=== PATIENT | female | born 1940 | race Caucasian/White ===

== ENCOUNTER 2016-10-17 08:50 | Inpatient (IN) | payer OTHER ==
[2016-09-11 14:08] VITALS: BMI 22.0
--- NOTE | 2016-09-11 14:54 | PAT Medication Instructions ---
Service Date Sep 11, 2016. Current Home Medication List Aspirin (Aspirin Ec), 81 MG PO QAM Calcium Carbonate-Vitamin D (Calcium + D), 1 TAB PO QPM Coenzyme Q10 (Ubidecarenone) (Coq10), 100 MG PO QAM Estrogens, Conjugated (Premarin), 0.3 MG PO QAM Flaxseed (Linseed) (Flax Seed Oil), 1,000 MG PO QPM Mtbgpprbfbv-Nlerqpbgqix-Eiu C- (Glucosamine Chondroitin), 1 TAB PO QAM Melatonin (Kp Melatonin), 1 TAB PO HS PRN for PRN Multiple Vitamins W/ Minerals (Hair/Skin/Nails), 1 TAB PO QAM Multivitamin (Multivitamin), 1 TAB PO QPM [place] Jelly ([place] Jelly), 200 MG PO QAM Trazodone Hcl (Trazodone), 150 MG PO HS Turmeric (Curcuma Longa) (Turmeric), 500 MG PO QAM [Magnesium], 500 MG PO PRN [Meloxicam], 3.3 MG PO QAM Medication Instructions For Your Scheduled Surgery - Check with surgeon for instructions: Estrogens, Conjugated (Premarin), 0.3 MG PO QAM [Meloxicam], 3.3 MG PO QAM - Hold the following medications 2 weeks prior to surgery: Turmeric (Cur[place]uma [place]a) (Turmeric), 500 MG PO QAM Iqijyoctbnc-Irgzcbmmtaf-Yqd C- (Glucosamine Chondroitin), 1 TAB PO QAM Flaxseed (Linseed) (Flax Seed Oil), 1,000 MG PO QPM Coenzyme Q10 (Ubidecarenone) (Coq10), 100 MG PO QAM [place] Jelly ([place] Jelly), 200 MG PO QAM - Hold the following medications the morning of surgery: [Magnesium], 500 MG PO PRN Multiple Vitamins W/ Minerals (Hair/Skin/Nails), 1 TAB PO QAM - Take the following medications the morning of surgery with a sip of water: Aspirin (Aspirin Ec), 81 MG PO QAM - Take the following medications as scheduled the night before surgery: [Magnesium], 500 MG PO PRN Trazodone Hcl (Trazodone), 150 MG PO HS Multivitamin (Multivitamin), 1 TAB PO QPM Melatonin (Kp Melatonin), 1 TAB PO HS PRN for PRN Calcium Carbonate-Vitamin D (Calcium + D), 1 TAB PO QPM If you have any questions please call us at [phone] (Nadia Berkowitz PA-C) or [phone] or [phone]
[2016-09-11 15:37] LABS: URINE APPEARANCE CLEAR (CLEAR); URINE BILIRUBIN NEG (NEG); URINE COLOR YELLOW; URINE NITRITE NEG (NEG); URINE PH 5.5 (4.5-7.5); URINE SPECIFIC GRAVITY 1.017 (1.000-1.030); UROBILINOGEN NEG (NEG); ZZUR CULT IF INDIC CLEAN CATCH NO
[2016-09-11 15:40] LABS: MANUAL MICROSCOPIC REQUIRED? NO; REVIEW REQ? NO
--- NOTE | 2016-09-11 15:41 | DIAGNOSTIC IMAGING REPORT ---
CHEST PREADMISSION(PA/LAT) CLINICAL HISTORY: PAT preoperative evaluation COMPARISON STUDY: No previous studies for comparison. FINDINGS: The bones soft tissues and hemidiaphragms are normal. The cardiomediastinal silhouette is normal. The lungs are clear. The pulmonary vasculature is normal. IMPRESSION: Negative chest. Electronically signed by: Yanick Allen M.D. 09/11/2016 3:39 PM Dictated Date/Time: 09/11/2016 3:39 PM
[2016-09-11 15:42] LABS: INR 0.9 (0.9-1.1)
[2016-09-11 16:28] LABS: ESTIMATED AVERAGE GLUCOSE 111 mg/dl; HA1C FLAG Normal (Normal)
--- NOTE | 2016-10-16 17:11 | HISTORY & PHYSICAL EXAMINATION ---
DATE OF ADMISSION: 10/17/2016 CHIEF COMPLAINT: Chronic right knee pain. HISTORY OF PRESENT ILLNESS: This is a 76-year-old female patient of Dr. Carson'rafael complaining of chronic right knee pain, longstanding, now progressively getting worse. The patient has failed conservative treatment including anti-inflammatories, intra-articular injections and the use of a brace or a wrap. The patient has increased pain with weightbearing activities and her pain does interfere with her activities of daily living. PAST MEDICAL HISTORY: Coronary artery disease status post [place] in 2014, osteoarthritis. SOCIAL HISTORY: Half a pack per day smoker, no alcohol. FAMILY HISTORY: Noncontributory. REVIEW OF SYSTEMS: Chronic right knee pain, otherwise denies any shortness of breath, chest pain, nausea, vomiting or any other joint complaints. MEDICATIONS: Premarin 0.3 mg daily, [place] jelly 200 mg daily, turmeric and cumin 500 mg daily, glucosamine chondroitin daily, CoQ10 daily, Meloxicam daily, aspirin 81 mg daily, trazodone 150 mg daily, multivitamin daily, calcium plus vitamin D daily, flax seed oil daily, magnesium and melatonin as needed. ALLERGIES: No known drug allergies. PHYSICAL EXAMINATION: GENERAL: Well-developed, well-nourished 76-year-old female in no acute distress. She is alert and oriented x3 and pleasant. HEENT: Normocephalic, atraumatic. Extraocular motions are intact. Pupils are equal and reactive to light. HEART: Regular rate and rhythm, no murmurs appreciated. LUNGS: Clear. ABDOMEN: Soft and nontender, bowel sounds are present. EXTREMITIES: Right knee reveals a valgus deformity with 0-130 degrees of range of motion. She has lateral joint line tenderness with crepitation. She has 5/5 strength. NEUROLOGIC: Neurovascularly, she is intact in her right lower extremity. DIAGNOSES: Right knee end-stage osteoarthritis. She also has a history of coronary artery disease status post a myocardial infarction in 2015, and osteoarthritis. PLAN: The patient was advised of diagnoses. Indications, risks, benefits, postop course all have been reviewed. The patient wishes to proceed with a right total knee arthroplasty. Necessary consent forms, preoperative testing and clearances will be obtained.
--- NOTE | 2016-10-16 17:37 | HISTORY & PHYSICAL EXAMINATION ---
DATE OF ADMISSION: 10/17/2016 CHIEF COMPLAINT: Chronic right knee pain. HISTORY OF PRESENT ILLNESS: This is a 76-year-old female patient of Dr. House complaining of chronic right knee pain, longstanding, now progressively getting worse. The patient has failed conservative treatment including intraarticular injections, anti-inflammatories and the use of a brace and a wrap. The patient has increased pain with weightbearing activities and her pain does interfere with her activities of daily living. PAST MEDICAL HISTORY: Coronary artery disease status post an [place] in November of 2014. Osteoarthritis. SOCIAL HISTORY: Half pack per day smoker, nondrinker. PAST SURGICAL HISTORY: 1. Knee meniscal surgery. 2. Both surgery on her shoulders. 3. Tonsils. 4. Hysterectomy. FAMILY HISTORY: Noncontributory. REVIEW OF SYSTEMS: The patient complains of chronic right knee pain, otherwise denies any shortness of breath, chest pain, nausea, vomiting or ____. MEDICATIONS: Premarin 0.3 mg daily, [place] jelly 200 mg daily, turmeric and cumin 500 mg daily, glucosamine daily, CoQ10 daily, meloxicam daily, 81 mg aspirin daily, trazodone 150 mg daily, multivitamin daily, calcium plus D daily, flax seed oil daily, magnesium daily, and melatonin daily. ALLERGIES: No known drug allergies. PHYSICAL EXAMINATION: GENERAL: Well-developed, well-nourished 76-year-old female in no acute distress of Dr. House. She is alert and oriented x3 and pleasant. HEENT: Normocephalic, atraumatic. Extraocular muscles are intact. Pupils are equal and reactive to light. HEART: Regular rate and rhythm, no murmurs appreciated. LUNGS: Clear. ABDOMEN: Soft, nontender, bowel sounds present. EXTREMITIES: Right knee reveals a valgus deformity. She has range of motion of 0-130 degrees. She has lateral joint line tenderness. She has crepitation with passive range of motion. She has 5/5 strength. NEUROLOGIC: Neurovascularly, she is intact in her right lower extremity. DIAGNOSES: Right knee end-stage osteoarthritis with a history of coronary artery disease status post an myocardial infarction in 2014, osteoarthritis. PLAN: The patient was advised of her diagnoses. Indications, risks, benefits, and postop course have all been reviewed. The patient wishes to proceed with a right total knee arthroplasty. Necessary consent forms, preoperative testing and clearances will be obtained.
[~2016-10-17] VITALS: Ht 162.6 cm; Wt 58.1 kg
[2016-10-17] VITALS (7 sets, daily range): BP systolic 111–173; BP diastolic 66–79; PULSE 69–84; TEMP 36.3–36.7; O2SAT 94–99; Ht 162.6 cm; Wt 58.1 kg
[~2016-10-17 08:50] MED LIST: ACETAMINOPHEN 500 MG TAB PO SCH; ASPI81TA28 PO; ATROPINE SULFATE 0.1 MG/ML 5ML SYR IV PRN; BUPIVACAINE 0.5 % 5 MG/1 ML PF 10ML VIAL ONE; CALC600T9 PO; CEFAZOLIN 1000MG/55 ML D5W 55 ML IV SCH; COEN100C7 PO; CeleBREX 200 MG CAP PO SCH; DEXAMETHASONE 4 MG TAB PO SCH; ESTR0.3T PO; EpHEDrine SULFATE INJ 50 MG/ML AMP IV PRN; FAMOTIDINE 20 MG TAB PO SCH; FLAX1CAP11 PO; GABAPENTIN 300 MG CAP PO SCH; GLUCTAB7 PO; HYDROmorphone INJ 2 MG/ML SYR/VIAL IV PRN; LACTATED RINGER'S 1000ML 1,000 ML IV SCH; LACTATED RINGER'S 1000ML IV SCH; LACTATED RINGER'S 500 ML IV SCH; MAGNESIUM PO; MELA1TAB5 PO; MELOXICAM PO; METO25TA3 PO; METOCLOPRAMIDE HCL 10 MG TAB PO SCH; MULT-506 PO; MULT-580 PO; ONDANSETRON INJ 2 MG/ML 2 ML VIAL IV PRN; PHENYLEPHRINE 100MCG/ML 5ML SYR IV PRN; PRAV20TA PO; ROPIVACAINE 0.5% 5 MG/ML 30 ML VIAL ONE; ROPIVACAINE 5MG/ML 30 ML 150 MG, BUPIVACAINE/EPINEPHR 0.5% MPF 30 ML, KETOROLAC TROMETH... INFIL SCH; ROYA1CAP2 PO; TRAZ100T29 PO; TURM1CAP4 PO; Tylenol PO
[2016-10-17] MEDS ORDERED: FENTANYL CITRATE INJ 50 MCG/1 ML 2 ML VIAL ONE (09:41)
[2016-10-17] MEDS ORDERED: MIDAZOLAM HCL 1 MG/ML 2ML VIAL ONE (09:41)
[2016-10-17] MEDS ORDERED: ORTHO JOINT ANESTHETIC ONE (09:47)
[2016-10-17] MEDS ORDERED: POVIDONE-IODINE OP SOLN 30 ML BTL ONE (09:47)
[2016-10-17] MEDS ORDERED: BACITRACIN 50000 UNIT VIAL ONE (09:48)
--- NOTE | 2016-10-17 09:56 | History & Physical Bridge Note ---
H&P Re-Evaluation Bridge Note: I have examined the patient, reviewed the History & Physical and in the interval since the performance of the History & Physical I have noted the following changes of clinical significance: No changes noted
[2016-10-17] MEDS ORDERED: METHYLPREDNISOLONE ACETATE 80 MG/ML VIAL ONE (10:07)
[2016-10-17] MEDS ORDERED: BUPIVACAINE 0.5 % 5 MG/1 ML MPF 30ML VIAL ONE (10:07)
--- NOTE | 2016-10-17 10:37 | History & Physical Bridge Note ---
H&P Re-Evaluation Bridge Note: I have examined the patient, reviewed the History & Physical and in the interval since the performance of the History & Physical I have noted the following changes of clinical significance: swelling ,effusion and pain left knee known djd there.
[2016-10-17] MEDS ORDERED: LIDOCAINE HCL 2% 2 ML VIAL (20MG/ML) ONE (10:59)
[2016-10-17] MEDS ORDERED: PROPOFOL IV EMULSION 10 MG/ML 20 ML VIAL IV ONE (10:59)
[2016-10-17] MEDS ORDERED: ONDANSETRON INJ 2 MG/ML 2 ML VIAL ONE (10:59)
[2016-10-17] MEDS ORDERED: PHENYLEPHRINE 100MCG/ML 5ML SYR ONE (11:58)
--- NOTE | 2016-10-17 12:20 | [facility] Operative Report ---
Operative Report Operative Date October 17, 2016. Pre-Operative Diagnosis right knee end stage djd oa and swelling, effusion, pain, left knee, known moderately severe degenerative joint disease . Post-Operative Diagnosis same Procedure(s) Performed right total knee replacement and aspiration and injection left knee with steroid Surgeon Dr Carson Checker Product Design Surgeon(s) Yanick Black PA-C Estimated Blood Loss 5 cc Findings end stage bilateral knee djd oa right worse than left Specimens A. Right knee-bone and tissue Drains 2 hemovac Anesthesia spinal regional orthomix Complication(s) None Disposition Recovery Room / PACU Indications end stage djd I attest to the content of the Intraoperative Record and any orders documented therein. Any exceptions are noted below.
[2016-10-17] MEDS ORDERED: MAGNESIUM HYDROXIDE SUSP 30 ML UDC PO PRN (12:45)
[2016-10-17] MEDS ORDERED: MoRPHine SULFATE 2 MG/ML CARP IV PRN (12:45)
[2016-10-17] MEDS ORDERED: BISACODYL 10 MG SUPP PR PRN (12:45)
[2016-10-17] MEDS ORDERED: SOD PHOSPHATE/SOD BIPHOSPHATE ENEMA 132 ML BTL PR PRN (12:45)
[2016-10-17] MEDS ORDERED: ONDANSETRON INJ 2 MG/ML 2 ML VIAL IV PRN (12:45)
[2016-10-17] MEDS ORDERED: NON-FORMULARY MEDICATION (Melatonin (Kp Melatonin) 1 TAB) PO PRN (12:45)
[2016-10-17] MEDS ORDERED: TRAMADOL HCL 50 MG TAB PO PRN (12:45)
--- NOTE | 2016-10-17 13:28 | DIAGNOSTIC IMAGING REPORT ---
RIGHT KNEE 1 OR 2 VIEWS ROUTINE CLINICAL HISTORY: AP/LATERAL IN PACU RIGHT KNEE Right pain COMPARISON: None. DISCUSSION: Total right knee prosthetic. Good contact between prosthesis and underlying bone. Surgical drains are in position. There is no evidence for soft tissue swelling. IMPRESSION: Anatomic alignment status post total right knee prosthetic Electronically signed by: Yanick Allen M.D. 10/17/2016 1:26 PM Dictated Date/Time: 10/17/2016 1:26 PM
--- NOTE | 2016-10-17 14:05 | Anesthesiology Progress Note ---
Anesthesia Post Op Note Date & Time October 17, 2016 at 14:04 Vital Signs Pain Intensity: 0 Vital Signs Past 12 Hours Date Time Temp Pulse Resp B/P Pulse Ox O2 Delivery O2 Flow Rate FiO2 10/17/16 14:02 75 10/17/16 14:02 75 16 96 10/17/16 14:01 97/55 10/17/16 14:00 97/55 10/17/16 13:57 76 10/17/16 13:57 76 16 96 10/17/16 13:55 99/56 10/17/16 13:52 77 10 96 10/17/16 13:52 77 10 10/17/16 13:50 99/57 10/17/16 13:47 78 10 10/17/16 13:47 78 10 96 10/17/16 13:46 36.8 10/17/16 13:45 100/63 10/17/16 13:41 79 10/17/16 13:41 80 16 96 10/17/16 13:40 107/63 10/17/16 13:36 79 12 10/17/16 13:36 79 12 95 10/17/16 13:35 118/67 10/17/16 13:31 80 14 10/17/16 13:31 79 14 94 10/17/16 13:30 118/69 10/17/16 13:26 79 13 95 10/17/16 13:26 78 13 10/17/16 13:25 122/75 10/17/16 13:25 36.6 79 16 122/75 95 Nasal Cannula 3 10/17/16 13:22 82 18 95 10/17/16 13:22 82 18 10/17/16 13:20 120/74 10/17/16 13:17 82 16 10/17/16 13:17 83 16 96 10/17/16 13:15 117/67 10/17/16 13:12 77 12 10/17/16 13:12 78 12 95 10/17/16 13:10 115/69 10/17/16 13:07 78 11 96 10/17/16 13:07 78 11 10/17/16 13:05 112/70 10/17/16 13:02 78 12 10/17/16 13:02 79 12 94 10/17/16 13:00 118/69 10/17/16 12:57 78 13 10/17/16 12:57 78 12 94 10/17/16 12:55 123/70 10/17/16 12:52 78 12 10/17/16 12:52 78 12 92 10/17/16 12:51 79 11 10/17/16 12:51 79 11 94 10/17/16 12:50 117/69 10/17/16 12:46 79 18 93 10/17/16 12:46 80 18 10/17/16 12:45 117/69 10/17/16 12:41 81 11 95 10/17/16 12:41 80 11 10/17/16 12:40 81 12 10/17/16 12:40 81 12 119/69 92 10/17/16 12:37 131/74 10/17/16 12:35 Nasal Cannula 3 10/17/16 12:30 36.9 86 16 117/72 91 Room Air 10/17/16 09:27 36.4 82 18 173/79 98 Room Air Notes Mental Status: alert / awake / arousable, participated in evaluation Pt Amnestic to Procedure: Yes Nausea / Vomiting: adequately controlled Pain: adequately controlled Airway Patency, RR, SpO2: stable & adequate BP & HR: stable & adequate Hydration State: stable & adequate Anesthetic Complications: no major complications apparent
[2016-10-17] MEDS ORDERED: MoRPHine SULFATE 4 MG/ML 1 ML CARP\\VIAL IV PRN (14:45)
--- NOTE | 2016-10-17 15:02 | OPERATIVE REPORT ---
DATE OF OPERATION: 10/17/2016 INDICATION FOR PROCEDURE: The patient is a 76-year-old female with chronic bilateral knee pain. She has valgus knees, right knee, severely valgus at least 20 degrees or 25 degrees valgus. She has [id number] in the lateral compartment of her right knee. She also has bone on bone on flexion of her left knee, and bilateral knee effusions and pain. PREOPERATIVE DIAGNOSIS: End-stage bilateral knee osteoarthritis, right greater than left. POSTOPERATIVE DIAGNOSIS: Same. PROCEDURE: Right total knee arthroplasty and left knee aspiration and injection with steroid. SURGEON: Dr. Carson. SMOKE TESTER: Yanick Black PA.-C. ANESTHESIA: Spinal, regional block and Orthomix. OPERATIVE PROCEDURE: The patient taken to the operating room, had regional block anesthetic. Right leg had spinal anesthetic. First, we sterilely prepped her left knee at a superior lateral approach to the suprapatellar effusion. A spinal needle was advanced into the knee joint and we aspirated the knee for 40 mL of clear yellow fluid and then injected her knee with Depo-Medrol and some local anesthetic. Then attention was taken to her right leg. Pneumatic tourniquet was placed on right upper thigh. Her right leg was sterilely prepped and draped with ChloraPrep in usual sterile fashion. Knee exam demonstrates she had good range of motion in extension and flexion, but she had marked valgus knee with pseudolaxity medially due to some stretching out of her MCL. The right leg was elevated, exsanguinated with Esmarch bandage. Pneumatic tourniquet was raised to 300 mmHg. Anterior incision was made across the right knee. Skin was incised sharply. Subcutaneous flaps were very thin and were elevated off of the fascia. Incision was made into the medial retinaculum and extended up in the mid third of the quadriceps tendon and extended down to the medial tibial tubercle. Intra-articular findings demonstrated that she had grade 4 DJD lateral compartment, some widening of the lateral femoral condyle chronically and some bone loss laterally. She had a chronic lateral meniscus tear which was subluxed. Her cruciate ligaments were still intact. She had grade 3 DJD patellofemoral joint and lateral tracking patella. The infrapatellar fat pad was resected. The meniscus remnants were resected. The ACL and PCL were resected. The fat pad over the anterior femur for placement of the component in that area was resected. Lateral synovial bands were released. I used the [place]ges \T\ Nephew Journey 2.0, total knee arthroplasty system using posterior stabilized implants and [facility] templating preop templating the knee for 4 femur and 4 tibia. The custom 4 femoral cutting block was pinned in position and the distal femoral cut was made. Then the 5-in-1 cutting block for size 4 was placed. The anterior, posterior and chamfer cuts were made. The tibia was subluxed and the custom tibial cutting block was pinned in position and the proximal tibial cut was made. Then the knee was extended and a subperiosteal peel lateral release was performed around the patella. The patella width was measured. Width was reproduced using a freehand cut technique and a 32 patellar component. Drill holes were made and the excess lateral facet was beveled off to prevent any impingement. We used the laminar spray unit feeder to assess ligamentous balance in extension and flexion, ligaments were balanced. The tibia was re-exposed. The 4 tibial trial was externally rotated in line with the tibial tubercle, pinned in position. The punch for the stem was used. Then, the 4 femoral trial was inserted, centered and the notch cutting devices were used, the collet was placed and the 10 trial insert gave balanced ligaments through full range of motion, but the patella did have some slight lateral tracking, so we did not have to do a lateral release, releasing the upper IT band attachment with lateral retinaculum back to the vastus lateralis muscle which was preserved and down to the proximal tibia. I left the synovium intact. Patella tracked centrally at this time. The trials were removed. The Orthomix anesthetic injection was injected per protocol. The knee was then copiously irrigated with pulsatile lavage antibiotic solution and bacitracin. The final components were then cemented with Simplex cement. The final components were the 4 posterior stabilized Oxinium Hodges \T\ Nephew Journey femoral component, the 4 primary tibial baseplate, the 10 mm posterior stabilized poly insert and the 32 mm patella. While cement cured, we used Betadine soap protocol. The knee was copiously irrigated with antibiotic solution and bacitracin. Two drains were brought out laterally. Quadriceps tendon and medial retinaculum were closed with interrupted [id number] #1 Vicryl sutures. The knee was taken through full range of motion, repair was secure. The subcutaneous tissue was closed with interrupted 2-0 Vicryl sutures, skin closed with sai. Sterile dressings were applied and the patient tolerated the procedure well. JONO Vogt was my evaluation assistant and functioned as evaluation assistant through the entire procedure. He assisted in patient positioning, prepping, draping, soft tissue retraction, instrument management during the procedure. He performed the fascial, subcutaneous and skin closure and will participate in postoperative care of the patient. I attest to the content of the Intraoperative Record and any orders documented therein. Any exceptions are noted below. JCARLOS
[2016-10-17] MEDS: D5W AND 1/2NSS + 20MEQ KCL 1,000 ML IV SCH (16:13)
[2016-10-17] MEDS ORDERED: NICOTINE 14 MG/24 HR TDSY TD ONE (16:15)
[2016-10-17] MEDS: CEFAZOLIN IV 1,000 MG in DEXTROSE 5% 50ML 50 ML IV SCH (18:40)
--- NOTE | 2016-10-17 19:57 | Medical Consult ---
Consultation Date of Consultation: October 17, 2016. Attending Physician: Leoncio Carson M.D. Reason for Consultation: postop medical management History of Present Illness Patient seen and examined after undergoing right TKA and left knee aspiration and steroid injection today by Dr. Carson. Patient states bilat LE's are still numb from anesthetic block and she is not having any pain so far. She is able to move her toes. Has not had a meal yet but ate crackers. She denies dizziness , chest pain, SOB, N/V, change in bowel or bladder movements. No hx of VTE. Past Medical/Surgical History Medical Problems: (1) CAD (coronary artery disease) Status: Chronic (2) Dyslipidemia Status: Chronic (3) S/p left shoulder surgery Status: Chronic (4) Tobacco abuse disorder Status: Chronic Surgical Problems: (1) H/O right knee surgery Status: Chronic (2) S/P partial hysterectomy Status: Chronic (3) S/p right shoulder rotator cuff repair Status: Chronic (4) S/P tonsillectomy Status: Chronic (5) Status post coronary artery stent placement Permanent Comment: BMS to RCA in 11/2014; Dr. Obrien Status: Chronic Family History FH: CAD (coronary artery disease) BROTHER ( of [place] age 51) Social History Smoking Status: Current Every Day Smoker (7 cigarettes per day) Alcohol Use: none Drug Use: none Housing Status: lives alone Allergies Coded Allergies: Atorvastatin (Verified Allergy, Unknown, MUSCLE ACHES, 10/17/16) Home Medications Active Reported [Tylenol] Unknown Strength Unknown Dose PO Q4 PRN Toprol Xl (Metoprolol Succinate) 25 Mg Tabcr 12.5 Mg PO QAM Pravachol (Pravastatin Sodium) 20 Mg Tab 10 Mg PO HS Kp Melatonin (Melatonin) 3 Mg Tab 1 Tab PO HS PRN 30 Days [Magnesium] 500 Mg PO PRN Flax Seed Oil (Flaxseed (Linseed)) 1 Cap Cap 1,000 Mg PO QPM Calcium + D (Calcium Carbonate-Vitamin D) 1 Tab Tab 1 Tab PO QPM Multivitamin (Multivitamins) Tab 1 Tab PO QPM Trazodone (Trazodone HCl) 100 Mg Tab 150 Mg PO HS Hair/Skin/Nails (Multiple Vitamins W/ Minerals) 1 Tab Tab 1 Tab PO QAM Aspirin Ec (Aspirin) 81 Mg Tab 81 Mg PO QAM [Meloxicam] 3.3 Mg PO QAM Coq10 (Coenzyme Q10 (Ubidecarenone)) 100 Mg Cap 100 Mg PO QAM Glucosamine Chondroitin (Rpzatjdtfua-Dmztzxgkguc-Uft C-) 1 Tab Tab 1 Tab PO QAM Turmeric (Turmeric (Curcuma Longa)) 500 Mg Cap 500 Mg PO QAM [facility] Jelly 200 Mg Cap 200 Mg PO QAM Premarin (Estrogens Conjugated) 0.3 Mg Tab 0.3 Mg PO QAM Current Inpatient Medications Current Inpatient Medications Medications (Trade) Dose Ordered Sig/Kaushal Route Start Time Stop Time Status Last Admin Dose Admin Cefazolin Sodium (Ancef 1000mg/55 ml D5W) 55 ml @ 100 mls/hr PREOP IV 10/17/16 06:00 10/17/16 18:00 10/17/16 10:42 100 MLS/HR Acetaminophen (Tylenol Tab) 1,000 mg PREOP PO 10/17/16 06:00 10/17/16 18:00 10/17/16 10:10 1,000 MG Celecoxib (CeleBREX CAP) 200 mg PREOP PO 10/17/16 06:00 10/17/16 18:00 10/17/16 10:10 200 MG Dexamethasone (Decadron Tab) 8 mg PREOP PO 10/17/16 06:00 10/17/16 18:00 10/17/16 10:11 8 MG Famotidine (Pepcid Tab) 20 mg PREOP PO 10/17/16 06:00 10/17/16 18:00 10/17/16 10:10 20 MG Gabapentin (Neurontin Cap) 300 mg PREOP PO 10/17/16 06:00 10/17/16 18:00 10/17/16 10:11 300 MG Metoclopramide HCl (Reglan Tab) 10 mg PREOP PO 10/17/16 06:00 10/17/16 18:00 10/17/16 10:09 10 MG Estrogens Conjugated (Premarin Tab) 0.3 mg QAM PO 10/18/16 09:00 11/17/16 08:59 Metoprolol Succinate (Toprol Xl Tab) 25 mg QAM PO 10/18/16 09:00 11/17/16 08:59 Pravastatin Sodium (Pravachol Tab) 20 mg HS PO 10/17/16 21:00 11/16/16 20:59 Trazodone HCl (Desyrel Tab) 150 mg HS PO 10/17/16 21:00 11/16/16 20:59 Calcium/Vitamin D (Caltrate Plus Tab) 1 tab QPM PO 10/17/16 21:00 11/16/16 20:59 Miscellaneous Information 1 ea 1 ea QS N/A 10/17/16 16:00 11/16/16 15:59 Potassium Chloride/Dextrose/ Sod Cl 1,000 ml @ 100 mls/hr Q10H IV 10/17/16 16:00 10/18/16 15:59 Cefazolin Sodium/ Dextrose (Ancef Iv/D5 50ml) 55 ml @ 100 mls/hr Q8H IV 10/17/16 19:00 10/18/16 03:32 Celecoxib (CeleBREX CAP) 200 mg BID PO 10/17/16 21:00 11/16/16 20:59 Oxycodone HCl (Roxicodone Immediate Rel Tab) 1 TABLET FOR PAIN RATING... Q4H PRN PO 10/17/16 12:45 10/31/16 12:44 Oxycodone HCl (Oxycontin Tab) 10 mg Q12 PO 10/17/16 21:00 10/31/16 20:59 Morphine Sulfate (MoRPHine SULFATE INJ) 2 mg Q2H PRN IV 10/17/16 12:45 10/31/16 12:44 Acetaminophen (Tylenol Tab) 1,000 mg Q8H PO 10/17/16 22:00 11/16/16 21:59 Magnesium Hydroxide (Milk Of Magnesia Susp) 30 ml Q6H PRN PO 10/17/16 12:45 11/16/16 12:44 Bisacodyl (Dulcolax Supp) 10 mg DAILY PRN [place] 10/17/16 12:45 11/16/16 12:44 Sodium Biphosphate/ Sodium Phosphate (Fleet Enema) 132 ml DAILY PRN [place] 10/17/16 12:45 11/16/16 12:44 Docusate Sodium (coLACE CAP) 100 mg BID PO 10/17/16 21:00 11/16/16 20:59 Diphenhydramine HCl (Benadryl Cap) 25 mg Q8H PRN PO 10/17/16 12:45 11/16/16 12:44 Zolpidem Tartrate (Ambien Tab) 5 mg HSZ PRN PO 10/17/16 12:45 11/16/16 12:44 Multivitamins (Multivitamin Tab) 1 tab QAM PO 10/18/16 09:00 11/17/16 08:59 Ondansetron HCl (Zofran Inj) 4 mg Q6H PRN IV 10/17/16 12:45 11/16/16 12:44 Pantoprazole Sodium (Protonix Tab) 40 mg QAM PO 10/18/16 09:00 11/17/16 08:59 Tramadol HCl (Ultram Tab) 1 tablet for pain rating... Q4H PRN PO 10/17/16 12:45 11/16/16 12:44 Aspirin (Ecotrin Tab) 81 mg BID PO 10/17/16 21:00 11/16/16 20:59 Morphine Sulfate (MoRPHine SULFATE INJ) 4 mg Q2H PRN IV 10/17/16 14:45 10/31/16 14:44 Review of Systems Ten systems reviewed and negative except as listed in HPI. Physical Exam Date Time Temp Pulse Resp B/P Pulse Ox O2 Delivery O2 Flow Rate FiO2 10/17/16 15:15 36.5 84 18 130/75 97 Nasal Cannula 3.0 10/17/16 14:15 94 Nasal Cannula 3.0 10/17/16 14:15 36.7 82 16 111/66 94 Nasal Cannula 3.0 10/17/16 14:15 94 Nasal Cannula 3.0 10/17/16 14:02 75 10/17/16 14:02 75 16 96 10/17/16 14:01 97/55 10/17/16 14:00 97/55 10/17/16 13:57 76 10/17/16 13:57 76 16 96 10/17/16 13:55 99/56 10/17/16 13:52 77 10 96 10/17/16 13:52 77 10 10/17/16 13:50 99/57 10/17/16 13:47 78 10 10/17/16 13:47 78 10 96 10/17/16 13:46 36.8 10/17/16 13:45 100/63 10/17/16 13:41 79 10/17/16 13:41 80 16 96 10/17/16 13:40 107/63 10/17/16 13:36 79 12 10/17/16 13:36 79 12 95 10/17/16 13:35 118/67 10/17/16 13:31 80 14 10/17/16 13:31 79 14 94 10/17/16 13:30 118/69 10/17/16 13:26 79 13 95 10/17/16 13:26 78 13 10/17/16 13:25 122/75 10/17/16 13:25 36.6 79 16 122/75 95 Nasal Cannula 3 10/17/16 13:22 82 18 95 10/17/16 13:22 82 18 10/17/16 13:20 120/74 10/17/16 13:17 82 16 10/17/16 13:17 83 16 96 10/17/16 13:15 117/67 10/17/16 13:12 77 12 10/17/16 13:12 78 12 95 10/17/16 13:10 115/69 10/17/16 13:07 78 11 96 10/17/16 13:07 78 11 10/17/16 13:05 112/70 10/17/16 13:02 78 12 10/17/16 13:02 79 12 94 10/17/16 13:00 118/69 10/17/16 12:57 78 13 10/17/16 12:57 78 12 94 10/17/16 12:55 123/70 10/17/16 12:52 78 12 10/17/16 12:52 78 12 92 10/17/16 12:51 79 11 10/17/16 12:51 79 11 94 10/17/16 12:50 117/69 10/17/16 12:46 79 18 93 10/17/16 12:46 80 18 10/17/16 12:45 117/69 10/17/16 12:41 81 11 95 10/17/16 12:41 80 11 10/17/16 12:40 81 12 10/17/16 12:40 81 12 119/69 92 10/17/16 12:37 131/74 10/17/16 12:35 Nasal Cannula 3 10/17/16 12:30 36.9 86 16 117/72 91 Room Air 10/17/16 09:27 36.4 82 18 173/79 98 Room Air General Appearance: WD/WN, no apparent distress Head: normocephalic, atraumatic Eyes: normal inspection, sclerae normal ENT: hearing grossly normal, pharynx normal Neck: supple, trachea midline Respiratory/Chest: lungs clear, normal breath sounds, no respiratory distress, no accessory muscle use Cardiovascular: regular rate, rhythm, no murmur Abdomen/GI: normal bowel sounds, non tender, soft Extremities/Musculoskelatal: no calf tenderness, no pedal edema, + pertinent finding (s/p right TKA, dressing and ice pack in place, drain in place with sanguinous drainage) Neurologic/Psych: alert, normal mood/affect, oriented x 3, + pertinent finding (sensation grossly intact bilateral LE. able to move toes bilaterally. ) Skin: normal color, warm/dry Assessment & Plan S/P RIGHT TKA and LEFT KNEE ASPIRATION / STEROID INJECTION POD #[address] Carson Pain control, activity, wound care per ortho Monitor daily H/H for acute blood loss anemia Continue incentive spirometry PT/ OT evals CAD S/P BMS TO RCA 11/2014 Stable; no chest pain Aspirin continued by ortho Continue beta kassandra (taking metoprolol succinate 12.5 mg qam) and statin Follows with [facility] cardiology BORDERLINE BP BP was borderline in 90s systolic postop - improved to 130s-140s systolic Continue metoprolol succinate with parameters DYSLIPIDEMIA Continue statin CHRONIC SMOKER Counselled for smoking cessation Nicotine patch ordered at patient's request DVT PROPHYLAXIS Per ortho DISPOSITION Per ortho Patient seen in collaboration by Dr. Odonnell. Please see his addendum. Patient will be followed by Dr. Busch tomorrow. ADDENDUM: This is a 76 year old female with PMH of CAD s/p stents in 2014 and tobacco use disorder presents for a R TKA. Doing well post-operatively, pain controlled, no other issues to note. No significant findings on exam; nicotine patch on continue b-kassandra and statin for her CAD DVT ppx as per ortho
[2016-10-17] MEDS: OXYCODONE HCL 10 MG TABCR (OXYCONTIN) PO SCH (20:49)
[2016-10-17] MEDS: PRAVASTATIN SOD 20 MG TAB PO SCH (20:50)
[2016-10-17] MEDS: CALCIUM 600MG + VIT D 400 IU TAB PO SCH (20:51)
[2016-10-17] MEDS: DOCUSATE SODIUM 100 MG CAP PO SCH (20:53)
[2016-10-17] MEDS: ASPIRIN 81 MG ECTAB PO SCH (20:54)
[2016-10-17] MEDS: TRAZODONE HCL 100 MG TAB PO SCH (20:55)
[2016-10-17] MEDS ORDERED: PRAVASTATIN SOD 20 MG TAB PO SCH (21:00)
[2016-10-17] MEDS ORDERED: CeleBREX 200 MG CAP PO SCH (21:00)
[2016-10-17] MEDS: ACETAMINOPHEN 500 MG TAB PO SCH (21:41)
[2016-10-18] VITALS (7 sets, daily range): BP systolic 95–128; BP diastolic 58–70; PULSE 70–78; TEMP 36.3–36.5; O2SAT 93–96
[2016-10-18] MEDS: ZOLPIDEM TARTRATE 5 MG TAB PO PRN ×2 (00:04→22:11)
[2016-10-18] MEDS: OXYCODONE HCL IR 5 MG TAB (IMMEDIATE RELEASE) PO PRN ×4 (00:04→15:38)
[2016-10-18] MEDS: D5W AND 1/2NSS + 20MEQ KCL 1,000 ML IV SCH ×2 (02:16→11:44)
[2016-10-18] MEDS: CEFAZOLIN IV 1,000 MG in DEXTROSE 5% 50ML 50 ML IV SCH (03:27)
[2016-10-18] MEDS: ACETAMINOPHEN 500 MG TAB PO SCH ×3 (05:40→21:25)
[2016-10-18 06:38] LABS: HEMATOCRIT 30.7 % (37-47); MEAN CELL VOLUME 93.9 fL (80-100); MEAN CORPUSCULAR HEMOGLOBIN 31.2 pg (25-34); MEAN CORPUSCULAR HGB CONC 33.2 g/dl (32-36); MEAN PLATELET VOLUME 10.4 fL (7.4-10.4); PLATELET COUNT 211 K/uL (130-400); RED BLOOD COUNT 3.27 M/uL (4.2-5.4); WHITE BLOOD COUNT 16.18 K/uL (4.8-10.8)
[2016-10-18 07:11] LABS: BUN/CREATININE RATIO 17.5 (10-20); CALCIUM 8.3 mg/dl (8.5-10.1); CREATININE 1.4 mg/dl (0.60-1.20); MAGNESIUM 2.6 mg/dl (1.8-2.4); POTASSIUM 5.1 mmol/L (3.5-5.1)
--- NOTE | 2016-10-18 08:20 | Orthopedic Progress Note ---
Orthopedic Progress Note Date of Service October 18, 2016. Subjective Post OP Day: 1 Reports: feeling well, pain controlled w PO medications, Denies: SOB, calf pain , chest pain, complaints, light headedness, nausea / vomiting Additional Notes: BUN/ Cr elevated this AM. Objective calves soft nontender, N/V intact, capillary refill less than 2 sec., dressing C /D/I, A&O x3, toes mobile Date Time Temp Pulse Resp B/P Pulse Ox O2 Delivery O2 Flow Rate FiO2 10/18/16 03:30 36.4 76 20 95/60 93 Room Air 10/18/16 00:00 Room Air 10/17/16 23:21 36.4 76 16 144/67 95 Room Air 10/17/16 19:14 36.5 82 18 145/73 94 Room Air 10/17/16 17:23 36.3 84 18 148/73 99 Nasal Cannula 3.0 10/17/16 16:09 36.3 69 18 134/71 99 Nasal Cannula 3.0 10/17/16 15:15 Nasal Cannula 3.0 10/17/16 15:15 36.5 84 18 130/75 97 Nasal Cannula 3.0 10/17/16 14:15 94 Nasal Cannula 3.0 10/17/16 14:15 36.7 82 16 111/66 94 Nasal Cannula 3.0 10/17/16 14:15 94 Nasal Cannula 3.0 10/17/16 14:02 75 10/17/16 14:02 75 16 96 10/17/16 14:01 97/55 10/17/16 14:00 97/55 10/17/16 13:57 76 10/17/16 13:57 76 16 96 10/17/16 13:55 99/56 10/17/16 13:52 77 10 96 10/17/16 13:52 77 10 10/17/16 13:50 99/57 10/17/16 13:47 78 10 10/17/16 13:47 78 10 96 10/17/16 13:46 36.8 10/17/16 13:45 100/63 10/17/16 13:41 79 10/17/16 13:41 80 16 96 10/17/16 13:40 107/63 10/17/16 13:36 79 12 10/17/16 13:36 79 12 95 10/17/16 13:35 118/67 10/17/16 13:31 80 14 10/17/16 13:31 79 14 94 10/17/16 13:30 118/69 10/17/16 13:26 79 13 95 10/17/16 13:26 78 13 10/17/16 13:25 122/75 10/17/16 13:25 36.6 79 16 122/75 95 Nasal Cannula 3 10/17/16 13:22 82 18 95 10/17/16 13:22 82 18 10/17/16 13:20 120/74 10/17/16 13:17 82 16 10/17/16 13:17 83 16 96 10/17/16 13:15 117/67 10/17/16 13:12 77 12 10/17/16 13:12 78 12 95 10/17/16 13:10 115/69 10/17/16 13:07 78 11 96 10/17/16 13:07 78 11 10/17/16 13:05 112/70 10/17/16 13:02 78 12 10/17/16 13:02 79 12 94 10/17/16 13:00 118/69 10/17/16 12:57 78 13 10/17/16 12:57 78 12 94 10/17/16 12:55 123/70 10/17/16 12:52 78 12 10/17/16 12:52 78 12 92 10/17/16 12:51 79 11 10/17/16 12:51 79 11 94 10/17/16 12:50 117/69 10/17/16 12:46 79 18 93 10/17/16 12:46 80 18 10/17/16 12:45 117/69 10/17/16 12:41 81 11 95 10/17/16 12:41 80 11 10/17/16 12:40 81 12 10/17/16 12:40 81 12 119/69 92 10/17/16 12:37 131/74 10/17/16 12:35 Nasal Cannula 3 10/17/16 12:30 36.9 86 16 117/72 91 Room Air 10/17/16 09:27 36.4 82 18 173/79 98 Room Air Laboratory Results 24 Hours: Test 10/18/16 06:06 Hematocrit 30.7 % Hemoglobin 10.2 g/dL Assessment & Plan Assessment: POD #1, Right TKA, Left knee aspiration/ steroid injection Plan: PT/ OT DVT proph- ASA D/C planning- Rehab Appreciate medicine input D/C Celebrex due to kidney function Inhouse Planning Pain Management: Oxycontin, Morphine, PO Tylenol, Oxy IR DVT Prophylaxis: TEDs, SCDs, ASA Discharge Planning Discharge Planning: rehab hospital Pain Management: Oxycontin, PO Tylenol, Oxy IR DVT Prophylaxis: TEDs, ASA Therapy: Physical Therapy, Occupational Therapy
[2016-10-18] MEDS: DOCUSATE SODIUM 100 MG CAP PO SCH ×2 (08:39→20:57)
[2016-10-18] MEDS: MULTIVITAMIN TAB PO SCH (08:40)
[2016-10-18] MEDS: ESTROGENS, CONJUGATED 0.3 MG TAB PO SCH (08:40)
[2016-10-18] MEDS: PANTOprazole SOD 40 MG TAB PO SCH (08:40)
[2016-10-18] MEDS: ASPIRIN 81 MG ECTAB PO SCH ×2 (08:40→20:57)
[2016-10-18] MEDS: METOPROLOL SUCC 25MG EXT REL TAB PO SCH (08:41)
[2016-10-18] MEDS: NICOTINE 14 MG/24 HR TDSY TD SCH (08:46)
[2016-10-18] MEDS: OXYCODONE HCL 10 MG TABCR (OXYCONTIN) PO SCH ×2 (08:48→20:56)
[2016-10-18] MEDS ORDERED: METOPROLOL SUCC 25MG EXT REL TAB PO SCH (09:00)
[2016-10-18] MEDS ORDERED: ROYAL JELLY PO SCH (09:00)
--- NOTE | 2016-10-18 09:26 | Clinical Documentation Query ---
Mr. MILLAN,KEMAR : CLINICAL DOCUMENTATION QUERY Patient is a 76 year old female who on 10/17 underwent right TKA and left knee aspiration and steroidal injection. Postoperative BUN and creatinine noted to be 25 mg/dl and 1.40 mg/dl. No documented history of CKD and orthopedic progress note mentions "BUN/ Cr elevated this AM" and goes on to discontinue Celebrex "due to kidney function". In your clinical opinion is this patient being managed for: ( ) Acute kidney failure ( ) Other explanation of clinical findings (Please Explain) ( ) Unable to determine (Please Define) ( ) Need to Discuss ( ) Not Agree The medical record reflects the following clinical findings, treatment, and risk factors. Clinical Indicators: As above Treatment: Discontinuation of Celebrex, serial chemistries Risk Factors: Age, surgery, acute blood losses, medications Please clarify and document your clinical opinion in the progress notes and discharge summary. Terms such as "probable", "suspected", "likely", "questionable", "possible", or "still to be ruled out" are acceptable. IF IN AGREEMENT, YOU MUST DOCUMENT ABOVE DIAGNOSTIC STATEMENT IN DAILY PROGRESS NOTES AND DISCHARGE SUMMARY. This document is not part of the patient's record. Thank You, Smooth Snow, TOYIN [phone]
--- NOTE | 2016-10-18 10:46 | Anesthesiology Progress Note ---
Anesthesia Post Op Note Date & Time October 18, 2016 at 10:45 Vital Signs Vital Signs Past 12 Hours Date Time Temp Pulse Resp B/P Pulse Ox O2 Delivery O2 Flow Rate FiO2 10/18/16 09:13 95 Room Air 10/18/16 09:10 36.4 78 16 120/62 95 Room Air 10/18/16 09:01 36.4 10/18/16 07:52 Room Air 10/18/16 03:30 36.4 76 20 95/60 93 Room Air 10/18/16 00:00 Room Air 10/17/16 23:21 36.4 76 16 144/67 95 Room Air Notes Mental Status: alert / awake / arousable, participated in evaluation Pt Amnestic to Procedure: Yes Nausea / Vomiting: adequately controlled Pain: adequately controlled Airway Patency, RR, SpO2: stable & adequate BP & HR: stable & adequate Hydration State: stable & adequate Neuraxial Anesthesia: sensory block resolved Anesthetic Complications: no major complications apparent
--- NOTE | 2016-10-18 13:41 | Progress Note ---
Internal Med Progress Note Date of Service: October 18, 2016. Provider Documentation: SUBJECTIVE: The patient was seen and examined Complains of some right Knee pain No other symptoms OBJECTIVE: Vital Signs-as noted below Exam: General-No distress at rest Eyes-normal ENT-normal Neck-supple Lungs-clear to ausucltate bilaterally Heart-regular,no murmur appreciated Abdomen-Benign,no masses,bowel sound present Extremities-Trace edema on right Neuro-AAOx3 Lab data as noted below. ASSESSMENT & PLAN: S/P RIGHT TKA POD # [address] Carson Management as per Ortho S/P LEFT KNEE ASPIRATION / STEROID INJECTION Denies any pain in left knee CAD S/P BMS TO RCA 11/2014 Stable; no chest pain Continue beta kassandra (taking metoprolol succinate 12.5 mg qam) and statin Follows with [facility] Denies any symptoms BORDERLINE BP BP was borderline in 90s systolic postop - improved to 130s-140s systolic Continue metoprolol succinate with parameters BP remains stable DYSLIPIDEMIA Continue statin CHRONIC SMOKER Counselled for smoking cessation Nicotine patch ordered at patient's request DVT PROPHYLAXIS Per ortho DISPOSITION Per ortho Medically stable Vital Signs: Date Time Temp Pulse Resp B/P Pulse Ox O2 Delivery O2 Flow Rate FiO2 10/18/16 11:59 36.3 72 18 128/70 95 Room Air 10/18/16 09:13 95 Room Air 10/18/16 09:10 36.4 78 16 120/62 95 Room Air 10/18/16 09:01 36.4 10/18/16 07:52 Room Air 10/18/16 03:30 36.4 76 20 95/60 93 Room Air 10/18/16 00:00 Room Air 10/17/16 23:21 36.4 76 16 144/67 95 Room Air 10/17/16 19:14 36.5 82 18 145/73 94 Room Air 10/17/16 17:23 36.3 84 18 148/73 99 Nasal Cannula 3.0 10/17/16 16:09 36.3 69 18 134/71 99 Nasal Cannula 3.0 10/17/16 15:15 Nasal Cannula 3.0 10/17/16 15:15 36.5 84 18 130/75 97 Nasal Cannula 3.0 10/17/16 14:15 94 Nasal Cannula 3.0 10/17/16 14:15 36.7 82 16 111/66 94 Nasal Cannula 3.0 10/17/16 14:15 94 Nasal Cannula 3.0 10/17/16 14:02 75 10/17/16 14:02 75 16 96 10/17/16 14:01 97/55 10/17/16 14:00 97/55 10/17/16 13:57 76 10/17/16 13:57 76 16 96 10/17/16 13:55 99/56 10/17/16 13:52 77 10 96 10/17/16 13:52 77 10 10/17/16 13:50 99/57 10/17/16 13:47 78 10 10/17/16 13:47 78 10 96 10/17/16 13:46 36.8 10/17/16 13:45 100/63 10/17/16 13:41 79 10/17/16 13:41 80 16 96 10/17/16 13:40 107/63 Lab Results: Results Past 24 Hours Test 10/18/16 06:06 Range/Units White Blood Count 16.18 4.8-10.8 K/uL Red Blood Count 3.27 4.2-5.4 M/uL Hemoglobin 10.2 12.0-16.0 g/dL Hematocrit 30.7 37-47 % Mean Corpuscular Volume 93.9 80-100 fL Mean Corpuscular Hemoglobin 31.2 25-34 pg Mean Corpuscular Hemoglobin Concent 33.2 32-36 g/dl RDW Standard Deviation 43.6 36.4-46.3 fL RDW Coefficient of Variation 12.6 11.5-14.5 % Platelet Count 211 130-400 K/uL Mean Platelet Volume 10.4 7.4-10.4 fL Sodium Level 139 136-145 mmol/L Potassium Level 5.1 3.5-5.1 mmol/L Chloride Level 109 98-107 mmol/L Carbon Dioxide Level 24 21-32 mmol/L Anion Gap 6.0 3-11 mmol/L Blood Urea Nitrogen 25 7-18 mg/dl Creatinine 1.40 0.60-1.20 mg/dl Est Creatinine Clear Calc Drug Dose 29.1 ml/min Estimated GFR () 41.9 Estimated GFR (Non- 36.2 BUN/Creatinine Ratio 17.5 10-20 Random Glucose 116 70-99 mg/dl Calcium Level 8.3 8.5-10.1 mg/dl Magnesium Level 2.6 1.8-2.4 mg/dl
[2016-10-18] MEDS: CALCIUM 600MG + VIT D 400 IU TAB PO SCH (21:21)
[2016-10-18] MEDS: TRAZODONE HCL 100 MG TAB PO SCH (21:22)
[2016-10-18] MEDS: PRAVASTATIN SOD 20 MG TAB PO SCH (21:23)
[2016-10-19] MEDS: ACETAMINOPHEN 500 MG TAB PO SCH (05:52)
[2016-10-19 06:11] VITALS: BP 136/68; PULSE 79; TEMP 36.7; O2SAT 92
[2016-10-19 07:13] LABS: HEMATOCRIT 27.2 % (37-47); MEAN CELL VOLUME 94.8 fL (80-100); MEAN CORPUSCULAR HEMOGLOBIN 30.7 pg (25-34); MEAN CORPUSCULAR HGB CONC 32.4 g/dl (32-36); MEAN PLATELET VOLUME 10.3 fL (7.4-10.4); PLATELET COUNT 185 K/uL (130-400); RED BLOOD COUNT 2.87 M/uL (4.2-5.4); WHITE BLOOD COUNT 8.67 K/uL (4.8-10.8)
[2016-10-19 07:49] LABS: BUN/CREATININE RATIO 19.5 (10-20); CALCIUM 8.5 mg/dl (8.5-10.1); CREATININE 1.3 mg/dl (0.60-1.20); POTASSIUM 5.2 mmol/L (3.5-5.1)
[2016-10-19] MEDS: DOCUSATE SODIUM 100 MG CAP PO SCH (07:58)
[2016-10-19] MEDS: ESTROGENS, CONJUGATED 0.3 MG TAB PO SCH (07:59)
[2016-10-19] MEDS: METOPROLOL SUCC 25MG EXT REL TAB PO SCH (07:59)
[2016-10-19] MEDS: MULTIVITAMIN TAB PO SCH (07:59)
[2016-10-19] MEDS: OXYCODONE HCL 10 MG TABCR (OXYCONTIN) PO SCH (07:59)
[2016-10-19] MEDS: ASPIRIN 81 MG ECTAB PO SCH (07:59)
[2016-10-19] MEDS: PANTOprazole SOD 40 MG TAB PO SCH (07:59)
[2016-10-19] MEDS: OXYCODONE HCL IR 5 MG TAB (IMMEDIATE RELEASE) PO PRN ×2 (08:00→11:32)
[2016-10-19 08:02] VITALS: BP 136/68; PULSE 79; TEMP 36.7; O2SAT 92
--- NOTE | 2016-10-19 08:06 | Orthopedic Progress Note ---
Orthopedic Progress Note Date of Service October 19, 2016. Subjective Post OP Day: 2 Reports: feeling well, pain controlled w PO medications, Denies: SOB, calf pain , chest pain, complaints, light headedness, nausea / vomiting Objective calves soft nontender, N/V intact, capillary refill less than 2 sec., dressing C /D/I, A&O x3, toes mobile Silverlon bled through, was replaced and now c/d/i. Date Time Temp Pulse Resp B/P Pulse Ox O2 Delivery O2 Flow Rate FiO2 10/19/16 06:11 36.7 79 16 136/68 92 Room Air 10/19/16 00:10 Room Air 10/18/16 23:08 36.5 77 14 103/58 93 Room Air 10/18/16 15:45 Room Air 10/18/16 15:23 36.4 70 18 111/61 96 Room Air 10/18/16 11:59 36.3 72 18 128/70 95 Room Air 10/18/16 09:13 95 Room Air 10/18/16 09:10 36.4 78 16 120/62 95 Room Air 10/18/16 09:01 36.4 Laboratory Results 24 Hours: Test 10/19/16 06:30 Hematocrit 27.2 % Hemoglobin 8.8 g/dL Assessment & Plan Assessment: POD #2, Right TKA, Left knee aspiration/ steroid injection Plan: PT/ OT DVT proph- ASA D/C planning- Rehab, [facility]. Appreciate medicine input D/C Celebrex due to kidney function Inhouse Planning Pain Management: Oxycontin, Morphine, PO Tylenol, Oxy IR DVT Prophylaxis: TEDs, SCDs, ASA Discharge Planning Discharge Planning: rehab hospital Pain Management: Oxycontin, PO Tylenol, Oxy IR DVT Prophylaxis: TEDs, ASA Therapy: Physical Therapy, Occupational Therapy
[2016-10-19] MEDS ORDERED: RXC5 PO (08:13)
[2016-10-19] MEDS ORDERED: CALC600T9 PO (08:13)
[2016-10-19] MEDS ORDERED: OXYSR10 PO (08:13)
[2016-10-19] MEDS ORDERED: MELA1TAB5 PO (08:13)
[2016-10-19] MEDS ORDERED: ROYA1CAP2 PO (08:13)
[2016-10-19] MEDS ORDERED: NCDT14 TD (08:13)
[2016-10-19] MEDS ORDERED: MULT-506 PO (08:13)
[2016-10-19] MEDS ORDERED: DIPH25CA50 PO (08:13)
[2016-10-19] MEDS ORDERED: ACET-1138 PO (08:13)
[2016-10-19] MEDS ORDERED: CLC100 PO (08:13)
[2016-10-19] MEDS ORDERED: ESTR0.3T PO (08:13)
[2016-10-19] MEDS ORDERED: AMB5 PO (08:13)
[2016-10-19] MEDS ORDERED: PRAV20TA PO (08:13)
[2016-10-19] MEDS ORDERED: PRT40 PO (08:13)
[2016-10-19] MEDS ORDERED: ASPEC81 PO (08:13)
[2016-10-19] MEDS ORDERED: MAGNESIUM PO (08:13)
[2016-10-19] MEDS ORDERED: METO25TA3 PO (08:13)
[2016-10-19] MEDS ORDERED: TRAZ100T29 PO (08:13)
--- NOTE | 2016-10-19 08:15 | Discharge Instructions ---
Discharge Instructions Date of Service October 19, 2016. Admission Reason for Admission: Right Knee Degenerative Joint Disease Discharge Discharge Diagnosis / Problem: Right TKA Discharge Goals Goal(s): Improve function Activity Recommendations Activity Level: Assistance Required . Additional Information Patient informed of condition: Yes Advance Directives: Yes DNR: No Level of Care: Acute Rehab Communicable Disease: No Prognosis: Improving Instructions / Follow-Up Instructions / Follow-Up ACTIVITY RECOMMENDATIONS: SELF CARE INSTRUCTIONS AFTER TOTAL KNEE REPLACEMENT A. You may need to continue a physical therapy program after discharge from the hospital. There are several options available to you. Your doctor will assist you in selecting the best one for you. 1. An out-patient facility 2 to 3 times a week for therapy or home therapy. 2. Continue working on all exercises taught to you in the hospital. Your goals should be to increase bending of your knee to 90 degrees and beyond and to fully straighten your knee. B. You may progress at your own pace from walking with a walker or crutches to a cane; then to no assistive devices. C. Make walking a part of your daily routine. Be up as much as comfortable with rest periods throughout the day. Rest with leg elevation is very important. Use the ice wrap frequently for the first 3-4 weeks. D. There are no restrictions on activities. You may ride in a car, shop, participate in research engineer and all social activities. E. Wear the long elastic stockings (GAIL hose) 20 hours a day for 2 weeks after surgery. They can be removed several times a day for laundering and for a bath. F. You may shower, no tub baths until cleared by your doctor. SPECIAL CARE INSTRUCTIONS: VERY IMPORTANT TO READ AND REVIEW A. There are a few signs you need to watch for after you are home. Call [facility] if you notice any of the followin. Increased severe knee pain. Some pain is expected especially when you exercise. 2. Increased swelling in your leg or knee; pain or swelling of the calf muscle in either lower leg. 3. Any fluid drainage from the incision. 4. Shortness of breath or chest pain. B. Please call [facility] at if you have any concerns or questions about your operation or recovery. The doctor or his nurse will return your call promptly. C. You must take antibiotics before dental work, bladder, bowel or other surgery. Your doctor will provide you with a permanent care to carry describing this precaution. IMPORTANT: * REMEMBER TO TAKE ASPIRIN, 81 MG, TWICE DAILY FOR 4 WEEKS UNLESS OTHERWISE DIRECTED. THIS IS YOUR BLOOD THINNER. * HIGH RISK PATIENTS MAY BE PRESCRIBED A STRONGER BLOOD THINNER. THIS WILL BE PROVIDED AT DISCHARGE. * CALL IF INCREASED PAIN, REDNESS, DRAINAGE OR FEVER GREATER THAT 101. * WEAR GAIL HOSE 20 HOURS PER DAY FOR 2 WEEKS. * YOU MAY HAVE A LARGE BAND-AID LIKE DRESSING (SILVERON). THIS WILL REMAIN ON YOUR INCISION FOR 7 DAYS, THEN CAN BE REMOVED. IF INCISION IS LEAKING THROUGH DRESSING, CALL THE OFFICE . FOLLOW UP VISIT: If appointment is not already scheduled: Please call [facility] to make a follow-up appointment for 2 weeks after your surgery at . Current Hospital Diet Patient's current hospital diet: Regular Diet Discharge Diet Recommended Diet: Regular Diet Procedures Procedures Performed: Aspiration and injection with steroid into left knee; right total knee arthroplasty Pending Studies Studies pending at discharge: no Laboratory Results Hemoglobin A1c Test 09/11/16 15:00 Range/Units Estimated Average Glucose 111 mg/dl Hemoglobin A1c 5.5 4.5-5.6 % Medical Emergencies . Who to Call and When: Medical Emergencies: If at any time you feel your situation is an emergency, please call 911 immediately. . Non-Emergent Contact Non-Emergency issues call your: Primary Care Provider . . "Provider Documentation" section prepared by Yanick Black. . Core Measure Problem Core Measures: VTE VTE Core Measures Date of VTE Diagnosis: October 19, 2016 Time of VTE Diagnosis: 08:14 Reason no anticoag overlap I/P: Treatment provided - N/A Reason no anticoag overlap @DC: Treatment provided - N/A [place] Drug Monitoring Program Search Results: patient reviewed within database, no issues identified
[2016-10-19] MEDS: NICOTINE 14 MG/24 HR TDSY TD SCH (08:52)
--- NOTE | 2016-11-04 21:35 | DISCHARGE SUMMARY ---
HISTORY OF PRESENT ILLNESS: A 76-year-old female patient of Dr. Carson's complaining of chronic right knee pain, long-standing, now progressively getting worse. The patient failed conservative treatment and elected to proceed with a right total knee arthroplasty. PAST MEDICAL HISTORY: Coronary artery disease status post an [place] in 2014 and osteoarthritis. POSTOPERATIVE COURSE: The patient underwent a right total knee arthroplasty on 10/17/2016. She was followed closely with medical consultation, DVT prophylaxis in the form of aspirin, physical therapy and pain control. The patient did very well postoperatively and was discharged on postoperative day #2. PHYSICAL EXAMINATION: Right knee - Silverlon dressing was clean, dry and intact. There was no redness, drainage. She had no calf tenderness. Negative Roz. Neurologically and neurovascularly she was intact in her right lower extremity. DIAGNOSES: Status post right knee total arthroplasty with a history of coronary artery disease and osteoarthritis. PLAN: The patient was discharged to [facility] after leaving the hospital. She will continue her preadmission medications, pain control and aspirin for DVT prophylaxis. She will follow up with Dr. Carson as an outpatient as scheduled.
== END 2016-10-19 12:25 | DRG 470 ==
LOC: ENRESERVTM → ENRESERVDT → C.ACU 08:50 → C.3E 09:55
PROVIDERS: ADMIT Orthopaedic Surgery Sports Medicine; ATTEND Orthopaedic Surgery Sports Medicine
PROC: 3E0U33Z Introduction of Anti-inflammatory into Joints, Percutaneous Approach (ICD-10-PCS; principal; 2016-10-17 10:30)
PROC: 0SRC0J9 Replacement of Right Knee Joint with Synthetic Substitute, Cemented, Open Approach (ICD-10-PCS; principal; 2016-10-17 10:30)
PROC: 0S9D0ZZ Drainage of Left Knee Joint, Open Approach (ICD-10-PCS; principal; 2016-10-17 10:30)
DX: M17.9 Osteoarthritis of knee, unspecified (principal); I25.10 Atherosclerotic heart disease of native coronary artery without angina pectoris; G89.29 Other chronic pain; E78.5 Hyperlipidemia, unspecified; F17.200 Nicotine dependence, unspecified, uncomplicated; I25.2 Old myocardial infarction; Z79.82 Long term (current) use of aspirin; Z90.710 Acquired absence of both cervix and uterus; Z79.899 Other long term (current) drug therapy

== ENCOUNTER 2022-03-14 07:05 | Observation (INO) ==
--- NOTE | 2022-02-02 14:47 | PAT Medication Instructions ---
Medication Instructions Date of Service February 02, 2022 Home Medications Beet Root 1 dose PO BID Viviseal 1 tab PO BID amoxicillin 500 mg tablet 2,000 mg PO UD PRN dental appts ascorbic acid (vitamin C) 500 mg tablet (Vitamin C) 500 mg PO BID aspirin 81 mg capsule 81 mg PO QAM calcium carb-magnesium oxide-vit D3 400 mg-167 mg-133 unit tablet (Calcium Magnesium + D) 1 tab PO BID flaxseed oil 1,000 mg capsule 1,000 mg PO HS meloxicam 7.5 mg tablet 7.5 mg PO QAM metoprolol succinate 25 mg tablet,extended release 24 hr 25 mg PO QAM multivitamin with minerals (Hair,Skin and Nails tablet) 1 tab PO QAM trazodone 50 mg tablet 150 mg PO HS turmeric root extract 500 mg capsule 500 mg PO QAM Continue as directed amoxicillin 500 mg tablet 2,000 mg PO UD PRN dental appts ASK your surgeon for instructions meloxicam 7.5 mg tablet 7.5 mg PO QAM STOP taking 2 weeks before surgery (or as soon as possible if surgery is within 2 weeks) Beet Root 1 dose PO BID Viviseal 1 tab PO BID flaxseed oil 1,000 mg capsule 1,000 mg PO HS turmeric root extract 500 mg capsule 500 mg PO QAM multivitamin with minerals (Hair,Skin and Nails tablet) 1 tab PO QAM DO NOT take the morning of surgery ascorbic acid (vitamin C) 500 mg tablet (Vitamin C) 500 mg PO BID calcium carb-magnesium oxide-vit D3 400 mg-167 mg-133 unit tablet (Calcium Magnesium + D) 1 tab PO BID Take morning of surgery With a small sip of water, OTHERWISE NOTHING TO EAT OR DRINK AFTER MIDNIGHT: aspirin 81 mg capsule 81 mg PO QAM (continue as normal unless told otherwise by surgeon) metoprolol succinate 25 mg tablet,extended release 24 hr 25 mg PO QAM Take evening before surgery ascorbic acid (vitamin C) 500 mg tablet (Vitamin C) 500 mg PO BID calcium carb-magnesium oxide-vit D3 400 mg-167 mg-133 unit tablet (Calcium Magnesium + D) 1 tab PO BID trazodone 50 mg tablet 150 mg PO HS Other Notes If you have any questions please call us at [phone] or [phone] or [phone] or [phone]
--- NOTE | 2022-02-06 12:07 | Anesthesiology Consultation ---
Date of Service February 06, 2022 Assessment & Plan (1) Encounter for pre-operative examination: - Abnormal preop CXR: Preop CXR done 02/06/22. Per report, "There is a 6 mm nodule within the right lower lobe with a surrounding hazy density. This is new from the prior study and could present a small focus of inflammatory/infectious change. However, follow-up dedicated chest CT is recommended for further evaluation of the nodule." Kaila at PCP office states they have received the CXR report and she will forward message to PCP to address. Awaiting PCP response regarding abnormal preop CXR and surgeon-ordered PCP preop evaluation (Dr. Carpio; scheduled 02/26/22). - Cardiology office visit (09/26/21): "She underwent cardiac catheterization on 02/21/2021 which showed nonobstructive coronary artery disease and patent RCA s tent. Transesophageal echocardiogram in showed moderate to severe aortic insufficiency and moderate aortic stenosis.. Continue current medications.. Start amlodipine.. Echocardiogram to followup on the progression of aortic stenosis/insufficiency." Awaiting upcoming echo (scheduled 02/21/22). - COVID screening: Per assessment on 02/06: No known COVID-19 positive contacts or current COVID-19 related symptoms. Travel screen negative. Patient vaccinated. At surgeon discretion if preop Covid testing being done. - Outpatient joint assessment: Pt currently scheduled for inpatient pathway. If surgeon requests review for outpatient joint pathway, patient is not acceptable candidate for outpatient joint program from anesthesia standpoint. Chart Review Chart Review: Patient seen in Pre Admission Testing Teaching & Discussion Pre-Anesthesia Teaching/Discussion Notes: Instructed NPO after midnight before surgery,except medications with 15 cc of water. Medication instructions provided according to the PAT guidelines. History Surgery Operation Date: 03/14/22 11:20 Proposed Procedures p Left Total Knee Arthroplasty - Leoncio Carson MD Height/Weight Height: 5 ft 3.5 in Weight: 54.2 kg Allergies Allergy/AdvReac Type Severity Reaction Status Date / Time atorvastatin AdvReac Unknown Muscle Verified 02/06/22 10:10 aches Medications Home Medications Medication Instructions Recorded Confirmed Last Taken Beet Root 1 dose PO BID 02/01/22 02/01/22 Unknown Viviseal 1 tab PO BID 02/01/22 02/01/22 Unknown amoxicillin 500 mg tablet 2,000 mg PO UD PRN dental appts 02/01/22 02/01/22 Unknown ascorbic acid (vitamin C) 500 mg 500 mg PO BID 02/01/22 02/01/22 Unknown tablet (Vitamin C) aspirin 81 mg capsule 81 mg PO QAM 02/01/22 02/01/22 Unknown calcium carb-magnesium oxide-vit 1 tab PO BID 02/01/22 02/01/22 Unknown D3 400 mg-167 mg-133 unit tablet (Calcium Magnesium + D) flaxseed oil 1,000 mg capsule 1,000 mg PO HS 02/01/22 02/01/22 Unknown meloxicam 7.5 mg tablet 7.5 mg PO QAM 02/01/22 02/01/22 Unknown metoprolol succinate 25 mg 25 mg PO QAM 02/01/22 02/01/22 Unknown tablet,extended release 24 hr multivitamin with minerals 1 tab PO QAM 02/01/22 02/01/22 Unknown (Hair,Skin and Nails tablet) trazodone 50 mg tablet 150 mg PO HS 02/01/22 02/01/22 Unknown turmeric root extract 500 mg 500 mg PO QAM 02/01/22 02/01/22 Unknown capsule Past Medical History Medical History Aortic stenosis Moderate to severe AR with moderate aortic stenosis on 02/2021 echo per cardio records, planned for updated echo prior to surgery CAD (coronary artery disease) BMS to RCA (2014) Follows with Dr. Le CKD (chronic kidney disease) Creatinine 1.4 per comparison labs from 02/01/2020* Dyslipidemia Hypertension Myocardial Infarction 2014 > BMS Osteoarthritis Exercise / Class Metabolic Activity III < 4 Walking/Shop/Light housework (one FS (no CP, no SOB), activity limited due to knee pain) Past Family History Family History Other No family history of adverse response to anesthesia Past Surgical History Surgical History History of arthroplasty of right knee History of cardiac cath 2014 (BMS x1) 02/2021 (Non-obstructive CAD with patent RCA stent) History of colonoscopy History of repair of rotator cuff R/L 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 Physical Exam Vital Signs VITALS BP 171/61 P 73 TEMP 98.0 SP02 96%RA RESP 18 PHYSICAL Full cervical extension range of motion. Full TMJ range of motion. TMD 3 finger breaths Mallampati Score 2 Dentition: upper/lower partials Lungs: clear throughout to auscultation Cardiac: regular rate and rhythm, II/ systolic murmur + right sided carotid radiation vs bruit (no hemodynamically significant carotid stenosis per 03/2021 carotid duplex) Spine: normal Extremities: no edema Lab Results Anesthesia Preop Results Results Anesthesia Widget: WBC 6.20 K/ul (4.8-10.8) 02/06/22 Hgb 13.2 g/dl (12.0-16.0) 02/06/22 Hct 40.1 % (34.1-44.9) 02/06/22 Plt 178 K/uL (130-400) 02/06/22 Na 139 mmol/L (136-145) 02/06/22 K 4.5 mmol/L (3.5-5.1) 02/06/22 Cl 106 mmol/L (98-107) 02/06/22 CO2 27 mmol/L (21-32) 02/06/22 BUN 19 mg/dl (6-23) 02/06/22 Creat 1.49 mg/dl (0.6-1.2) H 02/06/22 Glucose Level 89 mg/dl (70-99(Fasting)) 02/06/22 PT 10.5 Seconds (9.0-12.0) 02/06/22 PTT 26.5 Seconds (21.0-31.0) 02/06/22 INR 1.0 (0.9-1.1) 02/06/22 HA1c 5.5 % (4.5-5.6) 02/06/22 Urine Color Yellow 02/06/22 Urine Appearance Clear (Clear) 02/06/22 Urine pH 6.0 (4.5-7.5) 02/06/22 Urine Specific [place] 1.012 (1.000-1.030) 02/06/22 Urine Protein Trace (Negative) H 02/06/22 Urine Glucose (UA) Negative (Negative) 02/06/22 Urine Ketones Negative (Negative) 02/06/22 Urine Blood Negative (Negative) 02/06/22 Urine Nitrite Negative (Negative) 02/06/22 Urine Bilirubin Negative (Negative) 02/06/22 Urine Urobilinogen Negative (Negative) 02/06/22 Urine Leukocyte Esterase Negative (Negative) 02/06/22 Urine WBC (Auto) 0 /hpf (0-5) 02/06/22 Urine RBC (Auto) 0-4 /hpf (0-4) 02/06/22 Urine Hyaline Casts (Auto) 0 /lpf (0-5) 02/06/22 Urine Epithelial Cells (Auto) 10-20 /lpf (0-5) H 02/06/22 Urine Bacteria (Auto) Negative (Negative) 02/06/22 Blood Type B Positive 02/06/22 Antibody Screen NEGATIVE 02/06/22 Testing Electrocardiogram Date: 02/06/22 NSR at 62bpm. Voltage criteria for LVH. No significant change compared to 09/11/16 per zigzag topstitcher review. Chest X-Ray Date: 02/06/22 FINDINGS: No pneumothorax. No pleural fusions. There is mild diffuse interstitial thickening, unchanged. This is likely chronic. There is S-shaped scoliosis of the thoracolumbar spine. The cardiac silhouette is top normal in size. No evidence for pulmonary edema. There is a 6 mm nodule within the right lower lobe with surrounding hazy density. This is new from the prior study. Degenerative changes within the thoracic spine. IMPRESSION:. There is a 6 mm nodule within the right lower lobe with a surrounding hazy density. This is new from the prior study and could represent a small focus of inflammatory/infectious change. However, follow-up dedicated chest CT is recommended for further evaluation of the nodule. Mild chronic interstitial thickening, unchanged. This report was called/faxed to the referring physician following dictation. Cardiac Catheterization Date: 02/21/21 Patent prior stent with mildstent restenosis. Widely patent left coronary system. Normal LV systolic function. Normal right heart cath. Medical management recommended. Other Testing Carotid duplex (03/24/21) No hemodynamically significant stenosis seen within either carotid bifurcation region or either proximal ICA.
--- NOTE | 2022-03-13 18:01 | History & Physical Report ---
Date of Service March 13, 2022 Assessment & Plan (1) Primary osteoarthritis of left knee: Plan: Treatment options discussed with the patient. She has failed conservative measures. Risks, benefits and alternatives to surgery including but not limited to infection, DVT, pain, stiffness, need for revision surgery, damage to blood vessels, damage to nerves, PE, , were discussed with the patient and they wish to proceed. Plan on left total knee arthroplasty scheduled for 03/14 at [facility] with Dr. Carson. Plan: Aspirin 81 mg twice daily postop for DVT prophylaxis. She will plan on inpatient rehab. History of Present Illness Chief Complaint: Left knee pain Primary Care Provider: Roverto Vargas MD 81-year-old female with past medical history significant for coronary disease presents with ongoing left knee pain. Her pain is interfering with her daily activities. She has failed conservative measures. She would like to proceed with knee replacement. Patient denies headaches, sweats, fevers, chills, double vision, blurred vision, cough, sore throat, dysphagia, chest pain, sob, wheezing, n/v/d/c, numbness, tingling, fatigue, urinary symptoms, mood disorders. ROS positive for left knee pain and stiffness. Allergies Allergy/AdvReac Type Severity Reaction Status Date / Time atorvastatin AdvReac Unknown Muscle Verified 02/06/22 10:10 aches Home Medications Medication Instructions Recorded Confirmed Type Beet Root 1 dose PO BID 02/01/22 02/01/22 History Viviseal 1 tab PO BID 02/01/22 02/01/22 History amoxicillin 500 mg tablet 2,000 mg PO UD PRN dental appts 02/01/22 02/01/22 History ascorbic acid (vitamin C) 500 mg 500 mg PO BID 02/01/22 02/01/22 History tablet (Vitamin C) aspirin 81 mg capsule 81 mg PO QAM 02/01/22 02/01/22 History calcium carb-magnesium oxide-vit 1 tab PO BID 02/01/22 02/01/22 History D3 400 mg-167 mg-133 unit tablet (Calcium Magnesium + D) flaxseed oil 1,000 mg capsule 1,000 mg PO HS 02/01/22 02/01/22 History meloxicam 7.5 mg tablet 7.5 mg PO QAM 02/01/22 02/01/22 History metoprolol succinate 25 mg 25 mg PO QAM 02/01/22 02/01/22 History tablet,extended release 24 hr multivitamin with minerals 1 tab PO QAM 02/01/22 02/01/22 History (Hair,Skin and Nails tablet) trazodone 50 mg tablet 150 mg PO HS 02/01/22 02/01/22 History turmeric root extract 500 mg 500 mg PO QAM 02/01/22 02/01/22 History capsule Past Med/Surg History Medical History Aortic stenosis Moderate to severe AR with moderate aortic stenosis on 02/2021 echo per cardio records, planned for updated echo prior to surgery CAD (coronary artery disease) BMS to RCA (2014) Follows with Dr. 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 S/P tonsillectomy Family History Other No family history of adverse response to anesthesia Social History Smoking Status: Current every day smoker Second Hand Exposure: No; Hx Alcohol Use: No Hx Substance Use: No Preferred Language: Chilean Communication Ability: Effective Frame Maker Required: No Beliefs That Will Affect Care: None Current Living Situation: Alone Feels Safe at Home: Yes Review of Systems All systems reviewed & are unremarkable except as noted in HPI & below Physical Exam Constitutional: well developed and well nourished; no acute distress Eyes: PERRL, conjunctivae normal, anicteric sclerae ENMT: external ear and nose normal, oropharynx normal Neck: trachea midline, no thyromegaly Respiratory: normal respiratory effort, lungs clear to auscultation Cardiovascular: RRR, no murmur, no edema Musculoskeletal: Left knee: Valgus alignment. Moderate effusion. Tenderness medial joint line and lateral joint line. Positive Nils's. Stable to valgus and varus stress. ROM 5-130 degrees. Skin: no rashes, warm and dry Neurologic: patellar DTR's 2+ bilat, sensation intact Psychiatric: A+Ox3, euthymic affect Results & Data ([facility]) Diagnostic Findings Left knee radiographs demonstrate significant valgus deformity, [id number] lateral compartment. There is periarticular osteophyte formation .
[~2022-03-14 07:05] MED LIST changes: -ASPI81TA28 PO; -ATROPINE SULFATE 0.1 MG/ML 5ML SYR IV PRN; +BUPIVACAINE 0.25% 30 ML VIAL ONE; -CALC600T9 PO; -CEFAZOLIN 1000MG/55 ML D5W 55 ML IV SCH; -COEN100C7 PO; -DEXAMETHASONE 4 MG TAB PO SCH; +DEXAMETHASONE SOD INJ 4 MG/ML VIAL ONE; +EPINEPHrine INJ 1 MG/ML AMP ONE; -ESTR0.3T PO; -EpHEDrine SULFATE INJ 50 MG/ML AMP IV PRN; -FLAX1CAP11 PO; -GLUCTAB7 PO; -HYDROmorphone INJ 2 MG/ML SYR/VIAL IV PRN; -LACTATED RINGER'S 1000ML 1,000 ML IV SCH; -LACTATED RINGER'S 1000ML IV SCH; -LACTATED RINGER'S 500 ML IV SCH; +LR 500ML BOLUS, THEN 15ML/HR IV SCH; -MAGNESIUM PO; -MELA1TAB5 PO; -MELOXICAM PO; -METO25TA3 PO; -METOCLOPRAMIDE HCL 10 MG TAB PO SCH; +METOCLOPRAMIDE HCL 10 MG TABLET PO SCH; -MULT-506 PO; -MULT-580 PO; -ONDANSETRON INJ 2 MG/ML 2 ML VIAL IV PRN; -PHENYLEPHRINE 100MCG/ML 5ML SYR IV PRN; -PRAV20TA PO; -ROPIVACAINE 0.5% 5 MG/ML 30 ML VIAL ONE; +ROPIVACAINE 0.5% HCL/PF 150 MG, BUPIVACAINE 0.75% MPF 20 ML, EPINEPHrine 30MG/30ML (OR ... INSTIL SCH; -ROPIVACAINE 5MG/ML 30 ML 150 MG, BUPIVACAINE/EPINEPHR 0.5% MPF 30 ML, KETOROLAC TROMETH... INFIL SCH; -ROYA1CAP2 PO; +TRANEXAMIC ACID 1,000 MG **IV Intra-op IV SCH; +TRANEXAMIC ACID 1,000 MG **IV Pre-op IV SCH; -TRAZ100T29 PO; -TURM1CAP4 PO; -Tylenol PO; +ceFAZolin 1000MG 1,000 MG/7.5 ML SYR IV SCH; +dexAMETHasone 4 MG TAB PO SCH
[2022-03-14] MEDS ORDERED: ORTHO JOINT ANESTHETIC ONE (07:25)
--- NOTE | 2022-03-14 07:31 | History & Physical Bridge Note ---
Date of Service March 14, 2022 History & Physical Bridge Note I have examined the patient, reviewed the History & Physical and in the interval since the performance of the History & Physical I have noted the following changes of clinical significance: no changes noted
[2022-03-14] MEDS ORDERED: ONDANSETRON INJ 2 MG/ML 2 ML VIAL ONE (08:08)
[2022-03-14] MEDS ORDERED: LIDOCAINE 2% MPF LOCAL 5 ML VIAL INFIL ONE (08:08)
[2022-03-14] MEDS ORDERED: PROPOFOL IV EMULSION 10 MG/ML 20 ML VIAL IV ONE (08:08)
[2022-03-14] MEDS ORDERED: fentaNYL citrate 100 MCG/2 ML VIAL ONE ×2 (08:08→10:03)
[2022-03-14] MEDS ORDERED: MIDAZOLAM HCL 1 MG/ML 2ML VIAL ONE (08:08)
[2022-03-14] MEDS ORDERED: fentaNYL citrate 100 MCG/2 ML VIAL IV PRN (08:56)
[2022-03-14] MEDS ORDERED: PROMETHAZINE HCL 6.25 MG in SODIUM CHLORIDE 0.9% 50 ML IV PRN (08:56)
[2022-03-14] MEDS ORDERED: ePHEDrine sulfate 50 MG/ML AMP IV PRN (08:56)
[2022-03-14] MEDS ORDERED: ATROPINE SULFATE 0.1 MG/ML 10ML SYR IV PRN (08:56)
[2022-03-14] MEDS ORDERED: ONDANSETRON INJ 2 MG/ML 2 ML VIAL IV PRN (08:56)
[2022-03-14] MEDS ORDERED: PHENYLEPHRINE 100MCG/ML 5ML SYR ONE (09:31)
[2022-03-14] MEDS ORDERED: ePHEDrine sulfate 50 MG/ML SYR ONE (10:55)
[2022-03-14] MEDS ORDERED: ESMOLOL HCL INJ 10 MG/ML 10ML VIAL IV ONE (10:55)
--- NOTE | 2022-03-14 11:16 | Post Operative Brief Note ---
Immediate Post Op Note v1 Date of Surgery March 14, 2022 Pre & Post Diagnosis Operation Date: 03/14/22 09:20 Pre-Op Diagnosis: Osteoarthritis Left Knee Post-Op Diagnosis: Osteoarthritis Left Knee I identified the patient and participated in the time-out.: Yes Procedure Operation Date: 03/14/22 09:20 Actual Procedures p Left Total Knee Arthroplasty(Left), lateral release, superficial wound VAC- Leoncio Carson MD Surgeon Leoncio Carson MD Emergency Generator Mechanic Seth DE LA CRUZ Estimated Blood Loss 5 Findings Consistent with Post-Op Diagnosis Specimens Bone cuts Drains Hemovac Drain Anesthesia Type MAC Spinal Regional Complications none Disposition Disposition: Recovery Room Overlapping Procedure I was present for: the critical portions of procedure.
--- NOTE | 2022-03-14 12:37 | XRay Report ---
XR knee LT 1 or 2V routine HISTORY: 81 years-old Female Surgical Post Op [knee total joint arthroplasty COMPARISON: None TECHNIQUE: 2 views of the left knee FINDINGS: Total joint arthroplasty with patellar resurfacing. Anterior skin sai are noted along the postope rative soft tissue swelling and deep tissue air an surgical catheter. IMPRESSION: Total joint arthroplasty with expected postoperative changes. ACT 112: Negative or not required by law. The above report was generated using voice recognition software. It may contain grammatical, syntax o r spelling errors. Electronically signed by: Tomas Kapoor M.D. 03/14/2022 12:36 PM
[2022-03-14] MEDS ORDERED: HYDROmorphone INJ 0.5 MG/0.5 ML SYR IV PRN (13:13)
[2022-03-14] MEDS ORDERED: MAGNESIUM HYDROXIDE SUSP 30 ML UDC PO PRN (13:13)
[2022-03-14] MEDS ORDERED: bisacodyL 10 MG SUPP PR PRN (13:13)
[2022-03-14] MEDS ORDERED: NALOXONE HCL 0.4 MG/1 ML VIAL/CARP IV PRN (13:13)
[2022-03-14] MEDS: SODIUM CHLORIDE 0.9% 1000ML 1,000 ML IV SCH (13:31)
--- NOTE | 2022-03-14 13:35 | Hospitalist Consultation ---
Date of Consultation March 14, 2022 Assessment & Plan (1) Primary osteoarthritis of left knee: Guadalupe is an 81-year-old female with a past medical history of coronary artery disease s/p PCI with stent placement, dyslipidemia, partial hysterectomy, tobacco abuse, and arthritis presented to the hospital for operative intervention of primary osteoarthritis of the left knee and who is s/p total left knee arthroplasty with Dr. Toribio on 03/14/22. We are consulted for medical management. OA, s/p left total knee arthroplasty 03/14 Uncomplicated, doing well postop DVT prophylaxis, pain control, ambulation recommendations per primary surgical team Continue incentive spirometry, wean O2. Patient with good O2 sats on room air and no adventitious sounds/rales CAD, history of PCI Continue aspirin at least daily, may increase to twice daily for DVT PPx postop - Cardiac Cath 02/2021: In-stent restenosis of RCA less than 20-30%. No significant disease in left main, LAD, ramus. Nondominant CX without significant disease. Continue metoprolol succinate 25 mg daily TTE 02/21/2022: Performed at [facility]. EF 50%. Grade 1 diastolic dysfunction. Mild concentric hypertrophy. Moderate to severe aortic regurgitation. Moderate mitral regurg. Preop EKG: Normal sinus rhythm, QTC 475, LVH. No chest pain, chest pressure or cardiac symptoms preop or at time of bedside assessment. TIRSO/ARB previously discontinued per patient, unclear why. Blood pressure adequately controlled, continue follow-up with outpatient woven label designer Patient reports she is not on a statin due to muscle aches. Recommend lipid follow-up and panel as outpatient. If significantly elevated LDL and intolerant to statins, consider PCSK9 as outpatient. /AI - Echo as above No symptoms from this at this time, no indication for intervention at this time - Continue outpt cardiology followup Tobacco abuse Smoking cessation counseling provided, continue to recommend this especially given her history of PCI/cardiac disease. Precontemplative at this time Patient requested patch due to craving, patch provided Hypertension Continue amlodipine 2.5 mg daily Continue metoprolol as above Adequate postop blood pressure control at time of bedside assessment DVT prophylaxis: Per primary team Diet: Tolerating heart healthy diet CODE STATUS: Full code Disposition: Medical/surgical (2) CAD (coronary artery disease): (3) Dyslipidemia: (4) S/P partial hysterectomy: (5) Status post coronary artery stent placement: (6) Tobacco abuse disorder: History of Present Illness Attending Physician: Leoncio Carson MD History of Present Illness Guadalupe is an 81-year-old female with a past medical history of coronary artery disease s/p PCI with stent placement, dyslipidemia, partial hysterectomy, tobacco abuse, and arthritis presented to the hospital for operative intervention of primary osteoarthritis of the left knee and who is s/p total left knee arthroplasty with Dr. Toribio on 03/14/22. We are consulted for medical management Seen at bedside postoperatively. No pain in left leg. Feels well, denies fever/chills/sweats/chest pain/shortness of breath/difficulty breathing/lightheadedness/chills/pain. No nausea/vomiting. Is eating lunch, tolerating well without discomfort or nausea. She reports that she does have a stent, continues to use tobacco products although has been counseled to quit before. Notes that she orders organic tobacco and rolls her own cigarettes, smokes about 10 a day. Is having tobacco craving and would like a patch. Tobacco counseling provided, and discussed the risk on heart disease and stroke especially given her history of PCI. Patient acknowledges this risk but notes that she gets pleasure from it, and is not interested in quitting at this time. Reiterated benefits of quitting, and offered that should she be ready to quit or reduce her tobacco intake to reach out to her provider for assistance at this time to which patient is agreeable. Takes aspirin for stent protection, took her aspirin this morning. Was previously on lisinopril, but she reports she is not sure why this was stopped. Does not take it currently. Otherwise takes metoprolol, and meloxicam. Medical History: Reviewed Medications: Reviewed Surgical History: Reviewed Allergies: Reviewed Social History: Tobacco use, 10 handrolled cigarettes daily. Denies alcohol or recreational drug use Code Status: Full code Allergies Allergy/AdvReac Type Severity Reaction Status Date / Time atorvastatin AdvReac Unknown Muscle Verified 03/14/22 07:33 aches Home Medications Medication Instructions Recorded Confirmed Type Beet Root 1 dose PO BID 02/01/22 03/14/22 History Viviseal 1 tab PO BID 02/01/22 03/14/22 History amoxicillin 500 mg tablet 2,000 mg PO UD PRN dental appts 02/01/22 03/14/22 History ascorbic acid (vitamin C) 500 mg 500 mg PO BID 02/01/22 03/14/22 History tablet (Vitamin C) aspirin 81 mg capsule 81 mg PO QAM 02/01/22 03/14/22 History calcium carb-magnesium oxide-vit 1 tab PO BID 02/01/22 03/14/22 History D3 400 mg-167 mg-133 unit tablet (Calcium Magnesium + D) flaxseed oil 1,000 mg capsule 1,000 mg PO HS 02/01/22 03/14/22 History meloxicam 7.5 mg tablet 7.5 mg PO QAM 02/01/22 03/14/22 History metoprolol succinate 25 mg 25 mg PO QAM 02/01/22 03/14/22 History tablet,extended release 24 hr multivitamin with minerals 1 tab PO QAM 02/01/22 03/14/22 History (Hair,Skin and Nails tablet) trazodone 50 mg tablet 150 mg PO HS 02/01/22 03/14/22 History turmeric root extract 500 mg 500 mg PO QAM 02/01/22 03/14/22 History capsule Patient History Medical History Aortic stenosis Moderate to severe AR with moderate aortic stenosis on 02/2021 echo per cardio records, planned for updated echo prior to surgery CAD (coronary artery disease) BMS to RCA (2014) Follows with Dr. 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 S/P tonsillectomy Family History Other No family history of adverse response to anesthesia Social History Smoking Status: Current every day smoker Smoking End Date: 10 cigs/day; Second Hand Exposure: No; Do You Dip or Chew Tobacco: No; Tobacco Cessation Education Requested by Patient: No Hx Alcohol Use: No Hx Substance Use: No Preferred Language: Azeri Communication Ability: Effective Medical Record Clerk Required: No Beliefs That Will Affect Care: None Current Living Situation: Alone Other Information That Helps Us Care for You: No Feels Safe at Home: Yes Safety Concerns: Feels Safe At This Time Review of Systems Review of Systems: All systems reviewed & are unremarkable except as noted in Subjective Physical Exam Physical Exam: General: A&Ox3. NAD. Cooperative. HEENT: Atraumatic, normocephalic. Vision/hearing intact. Pupils equal and reactive to light Pulm: CTAB A&P. -wheezes, -rales, -rhonchi. Symmetrical chest rise. No increased work of breathing. No respiratory distress. Cardiac: RRR, systolic and soft diastolic murmur cruciated. Radial pulses intact and symmetrical. Abdominal: Nontender, nondistended, soft. BS present. Extremities: Left knee in postoperative wrap, drain in place draining sanguinous/serosanguineous material. Feet warm and well-perfused bilaterally. Able to wiggle toes bilaterally. Sensation soft touch intact in hands and feet bilaterally without asymmetry. Supervisor In Charge strength/elbow flexion 5/5 bilaterally. PT pulses intact bilaterally Results & Data Results & Data ([facility]) Vital Signs (Past 12 Hours) Vital Signs Temp Pulse Resp BP Pulse Ox O2 Del Method O2 Flow Rate 03/14/22 13:11 36.6 C 73 18 142/61 H 94 Room Air 2 03/14/22 12:55 79 16 141/62 H 94 Nasal Cannula 3 03/14/22 12:40 74 16 133/71 94 Nasal Cannula 3 03/14/22 12:25 36.4 C L 75 18 140/72 94 Nasal Cannula 3 03/14/22 12:15 79 18 138/68 99 Nasal Cannula 3 03/14/22 12:05 80 18 139/65 99 Oxymask 5 03/14/22 11:55 76 20 143/67 H 99 Oxymask 5 03/14/22 11:47 36.1 C L 77 20 149/78 H 100 Oxymask 5 03/14/22 07:39 36.4 C L 71 20 192/79 H 95 Room Air PG Care Time/CCT Total # of Minutes Spent Total Time Spent with Patient: Total time spent is greater than 50% in coordination of care (as documented) at patient's floor/unit and/or counseling patient: Coding Level of Care Code 23983 Inpt Consult Level 4 Diagnoses Primary osteoarthritis of left knee M17.12 CAD (coronary artery disease) I25.10 Dyslipidemia E78.5 S/P partial hysterectomy Z90.711 Status post coronary artery stent placement Z95.5 Tobacco abuse disorder Z72.0
--- NOTE | 2022-03-14 13:54 | Billing Data ---
Date of Service March 14, 2022 Coding Level of Care Code 43316 Office/OBS Consult Lvl 4 CPT Codes Smoking Cessation 3-10 min - 28500 ([id number]) Time Spent (min) 5 Comment ignore double E&M code, added for smoking cessation 24436
[2022-03-14] MEDS: ACETAMINOPHEN 500 MG TAB PO SCH ×2 (15:12→22:08)
[2022-03-14] MEDS: NICOTINE 21 MG/24 HR TDSY TD SCH (15:12)
--- NOTE | 2022-03-14 15:52 | Anesthesiology Progress Note ---
Date of Service March 14, 2022 Anesthesia Post Procedure Vital Signs Vital Signs: Temp Pulse Resp BP Pulse Ox O2 Del Method O2 Flow Rate 03/14/22 15:10 36.5 C 79 16 169/71 H 99 2 03/14/22 14:12 36.5 C 72 17 144/54 H 100 Nasal Cannula 2 03/14/22 13:51 36.6 C 73 18 152/83 H 94 Nasal Cannula 03/14/22 13:11 36.6 C 73 18 142/61 H 94 Room Air 2 03/14/22 12:55 79 16 141/62 H 94 Nasal Cannula 3 03/14/22 12:40 74 16 133/71 94 Nasal Cannula 3 03/14/22 12:25 36.4 C L 75 18 140/72 94 Nasal Cannula 3 03/14/22 12:15 79 18 138/68 99 Nasal Cannula 3 03/14/22 12:05 80 18 139/65 99 Oxymask 5 03/14/22 11:55 76 20 143/67 H 99 Oxymask 5 03/14/22 11:47 36.1 C L 77 20 149/78 H 100 Oxymask 5 03/14/22 07:39 36.4 C L 71 20 192/79 H 95 Room Air Pain Intensity Left Knee: Pain Intensity: 5 Transfer of Care Handoff Completed per policy Notes Mental Status: alert / awake / arousable Patient Amnestic to Procedure: Yes Nausea / Vomiting: adequately controlled Pain: adequately controlled Airway Patency, RR, SpO2: stable & adequate BP & HR: stable & adequate Hydration State: stable & adequate Anesthetic Complications: no major complications apparent
--- NOTE | 2022-03-14 17:02 | Operative Report ---
Post Operative Report Pre & Post Diagnosis Operation Date: 03/14/22 09:20 Pre-Op Diagnosis: End-stage osteoarthritis Left Knee Post-Op Diagnosis: End-stage osteoarthritis Left Knee I identified the patient and participated in the time-out.: Yes Procedure Operation Date: 03/14/22 09:20 Actual Procedures p Left Total Knee Arthroplasty(Left), lateral release, application superficial wound VAC- Leoncio Carson MD Surgeon Leoncio Carson MD Cv Rn Seth DE LA CRUZ Estimated Blood Loss 5 Findings Consistent with Post-Op Diagnosis Specimens Bone cuts Drains 2 Hemovac Anesthesia Type MAC Spinal Regional Complications none Disposition Disposition: Recovery Room Indications 81-year-old female who has severe lateral compartment osteoarthritis with significant valgus deformity and some bone loss lateral compartment. Patient's had extensive conservative management injections. Patient's had a successful right knee replacement. Description of Procedure The patient was taken to the operating room and anesthetized under spinal MAC regional block. Patient was placed supine on the the operating table. A pneumatic tourniquet was placed about the left upper thigh. The knee exam demonstrated good range of motion 0 through 145 degrees range of motion with a valgus knee and no pseudolaxity. The involved leg was elevated exsanguinated with Esmarch bandage and the pneumatic tourniquet was raised to 300 millimeters mercury. A longitudinal incision was made across the anterior knee. Skin flaps were elevated. An incision was made into the medial retinaculum and extended up into the mid third of the quadriceps tendon and extended down to the tibial tubercle. Intra-articular findings demonstrated severe lateral compartment osteoarthritis [id number] with some bone loss with widening of the lateral femoral condyle due to chronic [id number] wear with bone hypertrophy and large osteophytes.. The knee was exposed by excising cruciate ligaments and menisci. The infrapatellar fat pad was resected. The fat pad over the anterior femur at the upper aspect of the articular surface was resected for placement of the component in that area. A subperiosteal peel lateral release was performed around the patella. The [employer]hew Coppertinoney 2.0 total knee arthroplasty system was utilized for the procedure. The custom femoral cutting guide was pinned in position. The distal femoral cut was made. The size 3, 5 in 1 cutting block was placed. The anterior posterior and chamfer cuts were made. The knee was extended and a free hand cut technique was performed to the patella. The patella with was measured and the width was reproduced using a 32 symmetrical patella component. 3 drill holes are made for the patella component pegs. The tibia was then subluxed. The custom tibial cutting block was pinned in position and the proximal tibial cut was made with the oscillating saw. To balance ligaments a subperiosteal release of the IT band the lateral and posterior lateral capsule the popliteus tendon were all released. The size 3 tibial trial was externally rotated in line with the tibial tubercle and pinned in position. The punch for the stem was used. The femoral trial was inserted and centered the notch cutting devices were used and the collet was placed. Tibial trials were used for the insert. The size 12 constrained trial was tried but when the knee was flexed deeply the patella contacted the post and cause patella instability. A lateral release was performed leaving the synovium intact and the patella still tracked laterally in maximum flexion due to contact with the post of the constrained implant. The high flex 12 trial gave full flexion there was some mild flexion instability a few millimeters but acceptable and no mid flexion or extension instability and patient had full flexion to 145 degrees with patella tracking centrally trial gave balanced ligaments through full range of motion. The trials were removed. The Orthomix anesthetic cocktail was injected per protocol. The cut bone surfaces and soft tissue were copiously irrigated with pulsatile lavage saline solution. The final components were cemented with Simplex cement. The final components were [employer] journey 2.0 size 3 left femoral component, size 3 left tibial component, 12 left posterior stab ilized high flex polyethylene tibial bearing insert and 32 symmetrical patella. After the cement cured, the Betadine soak was used for 3 minutes. The knee was then copiously irrigated with pulsatile lavage saline solution. 2 drains were brought out laterally connected to Hemovac. The quadriceps tendon and medial retinaculum were closed with interrupted [id number] #1 Vicryl sutures. The knee was taken through full range of motion and repair was secure. Knee range of motion was 0 through 145 degrees. the subcutaneous tissues were closed with 2-0 Vicryl sutures. The skin was closed with sai. A torrey and Acticoat superficial wound VAC sterile dressing was applied. The tourniquet was let down and the patient had good capillary refill to the extremity. The patient tolerated the procedure well. My physician respiratory therapy assistant Seth DE LA CRUZ participated as assistant golf coach and was integral part in all aspects of the procedure including prepping, draping, leg positioning, soft tissue retraction, instrument management and assisted in the closure ,dressings application and will participate in postoperative care the patient. I attest to the content of the Intraoperative Record and any orders documented therein. Any exceptions are noted below.
[2022-03-14] MEDS: ceFAZolin 1000MG 1,000 MG/7.5 ML SYR IV SCH (17:50)
[2022-03-14] MEDS: ASPIRIN 81 MG ECTAB PO SCH (20:39)
[2022-03-14] MEDS: SENNA 8.6 MG TAB PO SCH (20:39)
[2022-03-14] MEDS: traZODone HCL 50 MG TAB PO SCH (20:39)
[2022-03-14] MEDS: CALCIUM 600MG + VIT D 400 IU TAB PO SCH (20:40)
[2022-03-14] MEDS: DOCUSATE SODIUM 100 MG CAP PO SCH (20:40)
[2022-03-14] MEDS: ASCORBIC ACID 500 MG TAB PO SCH (20:40)
[2022-03-14] MEDS: MELATONIN 3 MG TAB PO PRN (21:02)
[2022-03-15] MEDS: SODIUM CHLORIDE 0.9% 1000ML 1,000 ML IV SCH (01:23)
[2022-03-15] MEDS: ceFAZolin 1000MG 1,000 MG/7.5 ML SYR IV SCH (01:46)
[2022-03-15] MEDS: LORazepam 0.25 MG in SYRINGE 0.125 ML IV ONE ×2 (04:42→05:41)
[2022-03-15] MEDS: ACETAMINOPHEN 500 MG TAB PO SCH ×3 (05:41→21:18)
[2022-03-15 07:47] LABS: Hematocrit (blood only) 27.7 % (34.1-44.9); Hemoglobin 9.3 g/dl (12.0-16.0); Mean Corpuscular Hemoglobin 31.4 pg (25.0-34.0); Mean Corpuscular Hgb Conc 33.6 g/dL (32.0-36.0); Mean Corpuscular Volume 93.6 fL (80.0-100.0); Mean Platelet Volume 11.2 fL (9.4-12.3); Platelet Count 132 K/uL (130-400); RDW Coefficient of Variation 13.4 % (11.5-14.5); RDW Standard Deviation 46.1 fL (36.4-46.3); Red Blood Count 2.96 M/uL (3.93-5.22); White Blood Count 12.47 K/ul (4.8-10.8)
[2022-03-15 08:09] LABS: Creatinine Clr Calc Pharmacy 20.8 ml/min; Est GFR (African American) 30.7 ml/min; Est GFR (Non-African American) 26.5 ml/min
--- NOTE | 2022-03-15 08:31 | Orthopedic Progress Note ---
Date of Service March 15, 2022 Assessment & Plan (1) Primary osteoarthritis of left knee: Plan: POD 1 s/p Left TKA PT/OT protocols. WBAT LLE. DVT prophylaxis - ASA po bid, SCD's, GAIL's Pain management as written. Creat bumped up to 1.7 Will discuss with Med Service. DC planning - Pt hoping to go to [facility] Admission and Anticipated Discharge Date Admission Date: March 14, 2022 Subjective POD 1 Pt sleeping upon arrival. Easily awoken. No complaints other than she did not sleep well. Pain controlled. Physical Exam Physical Exam: Dressings C/D/I. Calves soft, NT. NV intact. Toes mobile. Good DF/PF. HV drainage 250ml from the latest shift. Results & Data ([facility]) Vital Signs (Past 12 Hours) Vital Signs Temp Pulse Resp BP BP Pulse Ox O2 Del Method 03/15/22 07:49 36.5 C 84 18 153/70 H Nasal Cannula 03/15/22 03:39 36.8 C 89 16 152/65 H 93 Nasal Cannula 03/14/22 21:14 36.4 C L 79 17 156/82 H 95 Room Air O2 Flow Rate 03/15/22 07:49 03/15/22 03:39 2 03/14/22 21:14 Laboratory Results Laboratory Results WBC 12.47 K/ul (4.8-10.8) H 03/15/22 07:08 RBC 2.96 M/uL (3.93-5.22) L 03/15/22 07:08 Hgb 9.3 g/dl (12.0-16.0) L 03/15/22 07:08 Hct 27.7 % (34.1-44.9) L 03/15/22 07:08 MCV 93.6 fL (80.0-100.0) 03/15/22 07:08 MCH 31.4 pg (25.0-34.0) 03/15/22 07:08 MCHC 33.6 g/dL (32.0-36.0) 03/15/22 07:08 RDW Std Deviation 46.1 fL (36.4-46.3) 03/15/22 07:08 RDW Coeff of Shelbi 13.4 % (11.5-14.5) 03/15/22 07:08 Plt Count 132 K/uL (130-400) 03/15/22 07:08 MPV 11.2 fL (9.4-12.3) 03/15/22 07:08 Sodium 136 mmol/L (136-145) 03/15/22 07:08 Potassium 5.0 mmol/L (3.5-5.1) 03/15/22 07:08 Chloride 108 mmol/L (98-107) H 03/15/22 07:08 Carbon Dioxide 23 mmol/L (21-32) 03/15/22 07:08 Anion Gap 5 (3-11) 03/15/22 07:08 BUN 30 mg/dl (6-23) H 03/15/22 07:08 Creatinine 1.76 mg/dl (0.6-1.2) H 03/15/22 07:08 Est Cr Clr Drug Dosing 20.8 ml/min 03/15/22 07:08 Est GFR ( Amer) 30.7 ml/min 03/15/22 07:08 Est GFR (Non-Af Amer) 26.5 ml/min 03/15/22 07:08 BUN/Creatinine Ratio 17.0 (10-20) 03/15/22 07:08 Glucose 112 mg/dl (70-99(Fasting)) H 03/15/22 07:08 Calcium 8.0 mg/dl (8.5-10.1) L 03/15/22 07:08 SARS-CoV-2, RNA, NAAT NEGATIVE (NEGATIVE) 03/14/22 07:22 Impressions Knee X-Ray 03/14/22 11:55 XR knee LT 1 or 2V routine HISTORY: 81 years-old Female Surgical Post Op [knee total joint arthroplasty COMPARISON: None TECHNIQUE: 2 views of the left knee FINDINGS: Total joint arthroplasty with patellar resurfacing. Anterior skin sai are noted along the postoperative soft tissue swelling and deep tissue air an surgical catheter. IMPRESSION: Total joint arthroplasty with expected postoperative changes. ACT 112: Negative or not required by law. The above report was generated using voice recognition software. It may contain grammatical, syntax or spelling errors. Electronically signed by: Tomas Kapoor M.D. 03/14/2022 12:36 PM
[2022-03-15] MEDS: MULTIVITAMIN TAB PO SCH (09:04)
[2022-03-15] MEDS: METOPROLOL SUCC 25MG EXT REL TAB PO SCH (09:04)
[2022-03-15] MEDS: ASCORBIC ACID 500 MG TAB PO SCH ×2 (09:04→21:17)
[2022-03-15] MEDS: ASPIRIN 81 MG ECTAB PO SCH ×2 (09:04→21:17)
[2022-03-15] MEDS: DOCUSATE SODIUM 100 MG CAP PO SCH ×2 (09:05→21:18)
[2022-03-15] MEDS: CALCIUM 600MG + VIT D 400 IU TAB PO SCH ×2 (09:05→21:18)
[2022-03-15] MEDS: NICOTINE 21 MG/24 HR TDSY TD SCH (09:05)
[2022-03-15] MEDS ORDERED: LACTATED RINGER'S 1,000 ML IV SCH (12:00)
--- NOTE | 2022-03-15 13:18 | XRay Report ---
XR chest 1V portable CLINICAL HISTORY: hypoxia COMPARISON STUDY: Chest radiograph September 11, 2016 February 06, 2022. FINDINGS: There is no pneumothorax. Trace bilateral pleural effusions have developed. There is minima l hazy right basilar opacity. There is subtle interstitial thickening. Cardiac size is normal. Medias tinal contours are normal. Note is made of a 1 cm nodular density lateral to the right hilum. There i s also a 6 mm right lower lung nodular density. Levoscoliosis of the thoracic spine is incidentally n oted. IMPRESSION: 1. Possible mild interstitial pulmonary edema. Trace bilateral pleural effusions. 2. Two nodular densities within the right lung which measure up to 1 cm. These may be infectious seo harriet a nonemergent chest CT is recommended to exclude pulmonary nodules. ACT 112: Negative or not required by law. Electronically signed by: Jamal Cash M.D. 03/15/2022 1:16 PM
[2022-03-15 14:21] LABS: BUN Creatinine Ratio 18.8 (10-20); Calcium 8.6 mg/dl (8.5-10.1); Creatinine Clr Calc Pharmacy 21.6 ml/min; Est GFR (Non-African American) 27.6 ml/min; Potassium 4.4 mmol/L (3.5-5.1)
--- NOTE | 2022-03-15 15:56 | Hospitalist Progress Note ---
Date of Service March 15, 2022 Assessment & Plan (1) Primary osteoarthritis of left knee: Plan: Guadalupe is an 81-year-old female with a past medical history of coronary artery disease s/p PCI with stent placement, dyslipidemia, partial hysterectomy, tobacco abuse, and arthritis presented to the hospital for operative intervention of primary osteoarthritis of the left knee and who is s/p total left knee arthroplasty with Dr. Toribio on 03/14/22. We are consulted for medical management. OA, s/p left total knee arthroplasty 03/14 Uncomplicated, doing well postop DVT prophylaxis, pain control, ambulation recommendations per primary surgical team Continue incentive spirometry, wean O2. Patient with good O2 sats on room air and no adventitious sounds/rales TASHIA versus prerenal azotemia Creatinine elevated from 1.49 prior baseline to 1.76 postoperatively Now downtrending to 1.7 TIRSO/ARB previously stopped, suspect due to renal impairment Improving with gentle fluids, encourage p.o. Repeat BMP in the morning if status, okay for discharge but recommend follow-up to PCP with repeat BMP within 1 week Odontogenic infection Patient with right lower tooth recurrent infection, does see dentist for this as outpatient Has some pain without discharge at right tooth #26 Reasonable to treat empirically with Augmentin twice daily or cefuroxime 500 mg twice daily for up to 7 days given inflammation and pain and recent orthopedic surgery with close follow-up within 2 weeks to her dentist CAD, history of PCI Continue aspirin at least daily, may increase to twice daily for DVT PPx postop - Cardiac Cath 02/2021: In-stent restenosis of RCA less than 20-30%. No significant disease in left main, LAD, ramus. Nondominant CX without significant disease. Continue metoprolol succinate 25 mg daily TTE 02/21/2022: Performed at [facility]. EF 50%. Grade 1 diastolic dysfunction. Mild concentric hypertrophy. Moderate to severe aortic regurgitation. Moderate mitral regurg. Preop EKG: Normal sinus rhythm, QTC 475, LVH. No chest pain, chest pressure or cardiac symptoms preop or at time of bedside assessment. TIRSO/ARB previously discontinued per patient, unclear why. Blood pressure adequately controlled, continue follow-up with outpatient mac developer Patient reports she is not on a statin due to muscle aches. Recommend lipid follow-up and panel as outpatient. If significantly elevated LDL and intolerant to statins, consider PCSK9 as outpatient. /AI - Echo as above No symptoms from this at this time, no indication for intervention at this time - Continue outpt cardiology followup Tobacco abuse Smoking cessation counseling provided, continue to recommend this especially given her history of PCI/cardiac disease. Precontemplative at this time Patient requested patch due to craving, patch provided Hypertension Continue amlodipine 2.5 mg daily Continue metoprolol as above Adequate postop blood pressure control at time of bedside assessment DVT prophylaxis: Per primary team Diet: Tolerating heart healthy diet CODE STATUS: Full code Disposition: Medical/surgical (2) CAD (coronary artery disease): (3) Dyslipidemia: (4) S/P partial hysterectomy: (5) Status post coronary artery stent placement: (6) Tobacco abuse disorder: Admission and Anticipated Discharge Date Admission Date: March 14, 2022 Subjective Doing well at bedside. No fevers, chills, sweats. No chest pain, chest pressure. Does have pain at her right lower tooth for which she needs to see a dentist, has had problems with odontogenic infections in the past. Otherwise no complaints. Feels she is peeing regularly and normally Review of Systems Review of Systems: All systems reviewed & are unremarkable except as noted in Subjective Physical Exam Physical Exam: General: A&Ox3. NAD. Cooperative. HEENT: Atraumatic, normocephalic. Vision/hearing intact. Pupils equal and reactive to light Pulm: CTAB A&P. -wheezes, -rales, -rhonchi. Symmetrical chest rise. No increased work of breathing. No respiratory distress. Cardiac: RRR, systolic and soft diastolic murmur cruciated. Radial pulses intact and symmetrical. Abdominal: Nontender, nondistended, soft. BS present. Extremities: Left knee in postoperative wrap, drain in place draining sanguinous/serosanguineous material. Feet warm and well-perfused bilaterally. Able to wiggle toes bilaterally. Sensation soft touch intact in hands and feet bilaterally without asymmetry. Sas Administrator strength/elbow flexion 5/5 bilaterally. PT pulses intact bilaterally Results & Data Results & Data ([facility]) Vital Signs (Past 12 Hours) Vital Signs Temp Pulse Resp BP Pulse Ox Pulse Ox O2 Del Method 03/15/22 11:32 36.5 C 67 18 156/63 H 94 Room Air 09/29/22 11:30 96 03/15/22 07:49 36.5 C 84 18 153/70 H Nasal Cannula O2 Flow Rate 03/15/22 11:32 03/15/22 11:30 0 03/15/22 07:49 PG Care Time/CCT Total # of Minutes Spent Total Time Spent with Patient: Total time spent is greater than 50% in coordination of care (as documented) at patient's floor/unit and/or counseling patient: Coding Level of Care Code 08049 Subseq Hosp Care Lvl 2 Diagnoses Primary osteoarthritis of left knee M17.12 CAD (coronary artery disease) I25.10 Dyslipidemia E78.5 S/P partial hysterectomy Z90.711 Status post coronary artery stent placement Z95.5 Tobacco abuse disorder Z72.0
[2022-03-15] MEDS: SENNA 8.6 MG TAB PO SCH (21:17)
[2022-03-15] MEDS: traZODone HCL 50 MG TAB PO SCH (21:18)
[2022-03-15] MEDS ORDERED: LEVALBUTEROL HCL 0.63 MG/3 ML NEB NEB STA (21:27)
[2022-03-15] MEDS ORDERED: FUROSEMIDE INJ 20 MG/2 ML VIAL IV ONE (21:33)
[2022-03-15] MEDS ORDERED: ALBUT/IPRATROP 3MG/0.5MG NEB 3 ML VIAL NEB STA (21:42)
[2022-03-15] MEDS: oxyCODONE HCL IR 5 MG TAB (IMMEDIATE RELEASE) PO PRN (21:47)
[2022-03-15] MEDS: MELATONIN 3 MG TAB PO PRN (21:54)
--- NOTE | 2022-03-15 21:57 | Communication Note ---
Date of Service: March 15, 2022 reported by RN that patient was feeling SOB and MONTANEZ Requiring 3L to maintain saturations >92% at bedside, patient reports not feeling too good - says her breathing is labored has mild conversational dyspnea denies chest pain, calf pain, belly pain, other discomfort does smoke 10 cigarettes a day general - relaxed appering 81yoF in NAD respiratory - mild conversational dyspnea, no accessory muscle use. lungs with bilateral expiratory wheezes and soft crackles towards bases cardiac - nrrr, +s1/s2 w/o m/r/g abdomen - soft/nontender/nondistended LEs - LLE wrapped, no TTP or appreciable swelling on the left calf compared to R cxr ordered - maybe just mildly progressed interstitial markings compared to before throughout I&O - up 2845 per EMR though not sure how accurate this is, only -375 out recorded A&P: mild respiratory distress - possibly multifactorial between mild pulmonary edema, atelectasis, and possible preexisting lung disease from smoking given the wheezes but otherwise normal vitals. will give duonebs x 1. give lasix 20mg iv x 1. encouraged ISBs and reviewed technique. can upgrade to cpap or bipap if distress continues and grab vbg. in contact w/ RN.
--- NOTE | 2022-03-15 21:57 | XRay Report ---
XR chest 1V portable CLINICAL HISTORY: sob, tian, hfref, +fluids today COMPARISON STUDY: Chest radiograph performed earlier today. FINDINGS: There is no pneumothorax. There are small bilateral pleural effusions. Several right lung n odular densities are again noted. Interstitial pulmonary edema has slightly progressed. Cardiomediast inal silhouette is stable. No consolidation is identified. IMPRESSION: 1. Progression of mild interstitial pulmonary edema. Small bilateral pleural effusions. 2. Several nodular densities within the right lung. Nonemergent chest CT is recommended to exclude pu lmonary nodules. ACT 112: Negative or not required by law. Electronically signed by: Jamal Cash M.D. 03/15/2022 9:56 PM
[2022-03-16] MEDS: oxyCODONE HCL IR 5 MG TAB (IMMEDIATE RELEASE) PO PRN ×3 (04:17→19:33)
[2022-03-16] MEDS: ACETAMINOPHEN 500 MG TAB PO SCH ×3 (05:23→22:41)
[2022-03-16] MEDS ORDERED: FUROSEMIDE INJ 20 MG/2 ML VIAL IV ONE (08:22)
--- NOTE | 2022-03-16 08:24 | Hospitalist Progress Note ---
Date of Service March 16, 2022 Assessment & Plan (1) Primary osteoarthritis of left knee: Plan: Guadalupe is an 81-year-old female with a past medical history of coronary artery disease s/p PCI with stent placement, dyslipidemia, partial hysterectomy, tobacco abuse, and arthritis presented to the hospital for operative intervention of primary osteoarthritis of the left knee and who is s/p total left knee arthroplasty with Dr. Toribio on 03/14/22. We are consulted for medical management. OA, s/p left total knee arthroplasty 03/14 Uncomplicated, doing well postop DVT prophylaxis, pain control, ambulation recommendations per primary surgical team Acute hypoxic respiratory failure, no prior oxygen requirement Remains on oxygen no wheezing at bedside assessment in any lung field or on forced expiration 03/16 Noted postoperatively. Initially +edema on CXR, increased SoB 03/15. - Brisk UOP overnight with 20mg lasix, SoB improved with 1420 outpt --> one additional dose given enxt AM. Patient oxygen requirements did not improve - CT follow-up without marked pulmonary edema and mild Cr bump, no clinical improvement, defer additional diuretics. - CT-C: 1. Advanced emphysema. 2. There are irregular subsolid airspace opacities in the right middle and lower lobes as detailed above. These likely correspond to the opacities seen by chest x-ray. These are pathologically indeterminate, and may be on an infectious/inflammatory basis. Lesions within the adenocarcinoma spectrum could also have this appearance. Follow-up with pulmonology is recommended, as is a repeat chest CT in 2-3 months time for reassessment. 3. Additional smaller nodules/subsolid opacities as above. These should also be reassessed at follow-up. 4. Small pleural effusions with dependent atelectasis. 5. Additional findings as above. No prior CT for com parison - On augmentin for coverage of odontogenic infection w/ recent surgery as below Given failure to improve with fluid tx and no edema on CT, emphysema withotu wheezing and significant new hypoxia, and indeterminant opacities (solid airspace opacity of right middle lobe to 2.5 cm, and irregular airspace opacity of 3 cm at right lower lobe. 8 mm subsolid nodule on lobe 143, scattered calcif ied granulomas. 3 mm nodule in lingula.) with negative procal pulmonary consulted for additional recommendations Emphysema -Regular tobacco use >50 years, rolls own cigarettes at least 10 per day - Expresses no interest in quitting/precontemplative. Notes she knows her kids 'will be mad' if she develops a malignancy/COPD/emphysema, but is not interested in quitting - No PFTs available for review. Patient denies any past history of COPD/emphysema to her knowledge, denies wheezing at any point, and reports she has never needed rescue or maintenance inhalers No wheezing on assessment, but with prolonged expiration phase and emphysema noted on CT above Odontogenic infection/Dental Caries - W/ poor oral hygeine and hx of regular tobacco use Patient with right lower tooth recurrent infection, does see dentist for this as outpatient but is pending additional w/u and has had increased pain at base of tooth x2 days without trauma/chipping Has some pain without discharge at right tooth #26 - Empiric tx augmentin and with have dentist followup week after d/c CAD, history of PCI Continue aspirin at least daily, may increase to twice daily for DVT PPx postop - Cardiac Cath 02/2021: In-stent restenosis of RCA less than 20-30%. No significant disease in left main, LAD, ramus. Nondominant CX without significant disease. Continue metoprolol succinate 25 mg daily TTE 02/21/2022: Performed at [facility]. EF 50% with normal wall motion. Grade 1 diastolic dysfunction. Mild concentric hypertrophy. Moderate to severe aortic regurgitation. Moderate mitral regurg. Preop EKG: Normal sinus rhythm, QTC 475, LVH. No chest pain, chest pressure or cardiac symptoms preop or at time of bedside assessment. TIRSO/ARB previously discontinued per patient, pt unclear why Blood pressure adequately controlled, continue follow-up with outpatient human geography faculty member Patient reports she is not on a statin due to muscle aches. Recommend lipid follow-up and panel as outpatient. If significantly elevated LDL and intolerant to statins, consider PCSK9 as outpatient. CKD, TASHIA Creatinine elevated from prior baseline 1.49 to 1.76 postoperatively Downtrending 03/16, with +fluid balance and mild edema TIRSO/ARB previously stopped, suspect due to renal impairment - Lasix as noted for fluid overload /AI - Echo as above No symptoms from this at this time, no indication for intervention at this time - Continue outpt cardiology followup Tobacco abuse Smoking cessation counseling provided, continue to recommend this especially given her history of PCI/cardiac disease. Precontemplative at this time Patient requested patch due to craving, patch provided Hypertension Continue amlodipine 2.5 mg daily Continue metoprolol as above Adequate postop blood pressure control at time of bedside assessment DVT prophylaxis: Per primary team Diet: Tolerating heart healthy diet CODE STATUS: Full code Disposition: Medical/surgical (2) CAD (coronary artery disease): (3) Dyslipidemia: (4) S/P partial hysterectomy: (5) Status post coronary artery stent placement: (6) Tobacco abuse disorder: (7) Emphysema of lung: (8) Acute respiratory failure with hypoxia: Admission and Anticipated Discharge Date Admission Date: March 14, 2022 Subjective At bedside, remains on 3 L of oxygen without shortness of breath. No home oxygen requirement. No chest pain, chest pressure, lightheadedness, dizziness. Does still have some tooth pain, denies fever/chills/sweats. Intermittent nonproductive cough without sputum production no recent change. No hemoptysis. Denies any wheezing, history of wheezing, and history of maintenance or rescue inhaler use. No COPD/emphysema to her knowledge. Notes tobacco use since age 13, currently rolls at least 10 cigarettes a day. Discussed risk of malignancy and heart/stroke effects of tobacco, patient reports she knows her kids would be mad at her but is not interested in quitting Review of Systems Review of Systems: All systems reviewed & are unremarkable except as noted in Subjective Physical Exam Physical Exam: General: A&Ox3. NAD. Cooperative. HEENT: Atraumatic, normocephalic. Vision/hearing intact. Pupils equal and reactive to light Pulm: No wheeze on inhalation/exhalation or on forced exhalation. Slightly prolonged expiration phase. No crackles/rales appreciated symmetrical chest rise. No increased work of breathing. No respiratory distress. Cardiac: RRR, +SM. Radial pulses intact and symmetrical. Abdominal: Nontender, nondistended, soft. BS present. Extremities: Left knee in postoperative wrap, drain in place draining sanguinous/serosanguineous material. Feet warm and well-perfused bilaterally. Able to wiggle toes bilaterally. Sensation soft touch intact in hands and feet bilaterally without asymmetry. Crushing Mill Operator strength/elbow flexion 5/5 bilaterally. PT pulses intact bilaterally Results & Data Results & Data ([facility]) Vital Signs (Past 12 Hours) Vital Signs Temp Pulse Resp BP Pulse Ox O2 Del Method O2 Flow Rate 03/16/22 07:28 36.5 C 70 16 150/62 H 91 Nasal Cannula 3 03/16/22 05:26 69 16 169/67 H 92 Nasal Cannula 3 03/16/22 02:00 93 Nasal Cannula 3 03/15/22 20:29 Nasal Cannula 3 03/15/22 22:51 36.8 C 78 18 171/77 H 93 Nasal Cannula 3 03/15/22 22:24 72 18 92 Nasal Cannula 3 03/15/22 20:39 36.9 C 79 18 181/88 H 95 Nasal Cannula 3 PG Care Time/CCT Total # of Minutes Spent Total Time Spent with Patient: Total time spent is greater than 50% in coordination of care (as documented) at patient's floor/unit and/or counseling patient: Coding Level of Care Code 02986 Subseq Obs Care Lvl 3 Diagnoses Primary osteoarthritis of left knee M17.12 CAD (coronary artery disease) I25.10 Dyslipidemia E78.5 S/P partial hysterectomy Z90.711 Status post coronary artery stent placement Z95.5 Tobacco abuse disorder Z72.0 Emphysema of lung J43.9 Acute respiratory failure with hypoxia J96.01
[2022-03-16 09:01] LABS: Hematocrit (blood only) 28.5 % (34.1-44.9); Hemoglobin 9.4 g/dl (12.0-16.0); Mean Corpuscular Hemoglobin 31.2 pg (25.0-34.0); Mean Corpuscular Volume 94.7 fL (80.0-100.0); Mean Platelet Volume 11.4 fL (9.4-12.3); Platelet Count 121 K/uL (130-400); RDW Coefficient of Variation 13.7 % (11.5-14.5); RDW Standard Deviation 47.3 fL (36.4-46.3); Red Blood Count 3.01 M/uL (3.93-5.22); White Blood Count 7.26 K/ul (4.8-10.8)
[2022-03-16] MEDS: MULTIVITAMIN TAB PO SCH (09:02)
[2022-03-16] MEDS: DOCUSATE SODIUM 100 MG CAP PO SCH ×2 (09:02→20:06)
[2022-03-16] MEDS: METOPROLOL SUCC 25MG EXT REL TAB PO SCH (09:02)
[2022-03-16] MEDS: CALCIUM 600MG + VIT D 400 IU TAB PO SCH ×2 (09:02→20:05)
[2022-03-16] MEDS: NICOTINE 21 MG/24 HR TDSY TD SCH (09:03)
[2022-03-16] MEDS: ASPIRIN 81 MG ECTAB PO SCH ×2 (09:03→20:06)
[2022-03-16] MEDS: ASCORBIC ACID 500 MG TAB PO SCH ×2 (09:03→20:06)
[2022-03-16 09:18] LABS: BUN Creatinine Ratio 20.9 (10-20); Calcium 8.4 mg/dl (8.5-10.1); Creatinine Clr Calc Pharmacy 20.1 ml/min; Est GFR (African American) 29.5 ml/min; Est GFR (Non-African American) 25.4 ml/min; Potassium 4.4 mmol/L (3.5-5.1)
[2022-03-16 09:20] LABS: Basophils # (auto) 0.02 K/uL (0-0.2); Basophils % (auto) 0.3 %; Eosinophils # (auto) 0.14 K/uL (0-0.50); Eosinophils % (auto) 1.9 %; Immature Granulocytes # (auto) 0.01 K/uL (0.00-0.02); Immature Granulocytes % (auto) 0.1 %; Lymphocytes # (auto) 1.71 K/uL (1.2-3.4); Lymphocytes % (auto) 23.6 %; Monocytes # (auto) 0.57 K/uL (0.24-0.82); Monocytes % (auto) 7.9 %; Neutrophils # (auto) 4.81 K/uL (1.4-6.5); Neutrophils % (auto) 66.2 %
--- NOTE | 2022-03-16 10:50 | CT Scan Report ---
CT SCAN OF THE CHEST WITHOUT IV CONTRAST CLINICAL HISTORY: Pulmonary nodule. COMPARISON STUDY: Chest x-ray dated 03/15/2022. TECHNIQUE: CT scan of the thorax was performed from the thoracic inlet to the upper abdomen. Images are reviewed in the axial, sagittal, and coronal planes. IV contrast was not administered for this ex amination as per the referring clinician. A dose lowering technique was utilized adhering to the mala ncisam of CRISTINA. The examination is degraded by motion artifact, as well as by streak artifact from the arms which could not be elevated above the chest. CT DOSE: 227.22 mGycm FINDINGS: Thyroid: Imaged portions of the thyroid gland are normal in size and attenuation. Thoracic aorta: There is atherosclerotic calcification of the thoracic aorta, which is normal in swati saran and demonstrates standard 3-vessel arch anatomy. Heart: The heart is normal in size and without pericardial effusion. The coronary arteries are densel y calcified. There is diminished attenuation of the cardiac blood pool as compared to the myocardium suggesting anemia. Lungs and pleural spaces: There is advanced emphysema. The trachea and central airways are clear. Sma ll pleural effusions are noted with dependent atelectasis. There is a subsolid ill-defined airspace o pacity in the right middle lobe on image #170. This measures up to 2.5 cm. A similar-appearing irregu lar airspace opacity in the right lower lobe on image #120 measures approximately 3 cm. An 8 mm subso lid nodule suggested in the right upper lobe on image #143. There are scattered calcified granulomas. A 3 mm nodule in the lingula is seen on image #150. Mediastinum: There is no mediastinal lymphadenopathy. Apryl: Not well assessed without IV contrast. Axillae: There is no axillary lymphadenopathy. Upper abdomen: Partially visualized upper abdominal viscera is within normal limits. Skeletal structures: The skeletal structures are osteopenic. No lytic or blastic bony lesions are see n. Degenerative change and scoliosis is noted in the spine. IMPRESSION: 1. Advanced emphysema. 2. There are irregular subsolid airspace opacities in the right middle and lower lobes as detailed ab ove. These likely correspond to the opacities seen by chest x-ray. These are pathologically indetermi chuy, and may be on an infectious/inflammatory basis. Lesions within the adenocarcinoma spectrum coul d also have this appearance. Follow-up with pulmonology is recommended, as is a repeat chest CT in 2- 3 months time for reassessment. 3. Additional smaller nodules/subsolid opacities as above. These should also be reassessed at follow- up. 4. Small pleural effusions with dependent atelectasis. 5. Additional findings as above. ACT 112: Positive. There are findings on this exam that require communication between the performing entity and the patient following Patient Test Result Information Act ([place] Act 112) guidelines. Electronically signed by: Jesse Driver M.D. 03/16/2022 10:49 AM
--- NOTE | 2022-03-16 11:28 | Orthopedic Progress Note ---
Date of Service March 16, 2022 Assessment & Plan (1) Primary osteoarthritis of left knee: Plan: POD 2 s/p Left TKA PT/OT protocols. WBAT LLE. DVT prophylaxis - ASA po bid, SCD's, GAIL's Pain management as written. Creat bumped up to 1.[address] Brown following. Appreciate input. Dressing change today. DC planning - Pt hoping to go to [facility]. Awating auth Admission and Anticipated Discharge Date Admission Date: March 14, 2022 Subjective POD 2 Pt lying in bed awake, alert. Having pain in her operative knee today. No other complaints. Physical Exam Physical Exam: Dressings C/D/I. Calves soft, mild tenderness anterior tibial area and in the knee. Roz's negative. NV intact. Toes mobile. Results & Data ([facility]) Vital Signs (Past 12 Hours) Vital Signs Temp Pulse Resp BP Pulse Ox O2 Del Method O2 Flow Rate 03/16/22 08:00 Nasal Cannula 3 03/16/22 07:28 36.5 C 70 16 150/62 H 91 Nasal Cannula 3 03/16/22 05:26 69 16 169/67 H 92 Nasal Cannula 3 03/16/22 02:00 93 Nasal Cannula 3 Laboratory Results Laboratory Results WBC 7.26 K/ul (4.8-10.8) 03/16/22 08:04 RBC 3.01 M/uL (3.93-5.22) L 03/16/22 08:04 Hgb 9.4 g/dl (12.0-16.0) L 03/16/22 08:04 Hct 28.5 % (34.1-44.9) L 03/16/22 08:04 MCV 94.7 fL (80.0-100.0) 03/16/22 08:04 MCH 31.2 pg (25.0-34.0) 03/16/22 08:04 MCHC 33.0 g/dL (32.0-36.0) 03/16/22 08:04 RDW Std Deviation 47.3 fL (36.4-46.3) H 03/16/22 08:04 RDW Coeff of Shelbi 13.7 % (11.5-14.5) 03/16/22 08:04 Plt Count 121 K/uL (130-400) L 03/16/22 08:04 MPV 11.4 fL (9.4-12.3) 03/16/22 08:04 Immature Gran % (Auto) 0.1 % 03/16/22 08:04 Neut % (Auto) 66.2 % 03/16/22 08:04 Lymph % (Auto) 23.6 % 03/16/22 08:04 Freeborn % (Auto) 7.9 % 03/16/22 08:04 Eos % (Auto) 1.9 % 03/16/22 08:04 Baso % (Auto) 0.3 % 03/16/22 08:04 Neut # (Auto) 4.81 K/uL (1.4-6.5) 03/16/22 08:04 Lymph # (Auto) 1.71 K/uL (1.2-3.4) 03/16/22 08:04 Freeborn # (Auto) 0.57 K/uL (0.24-0.82) 03/16/22 08:04 Eos # (Auto) 0.14 K/uL (0-0.50) 03/16/22 08:04 Baso # (Auto) 0.02 K/uL (0-0.2) 03/16/22 08:04 Immature Gran # (Auto) 0.01 K/uL (0.00-0.02) 03/16/22 08:04 Sodium 136 mmol/L (136-145) 03/16/22 08:04 Potassium 4.4 mmol/L (3.5-5.1) 03/16/22 08:04 Chloride 107 mmol/L (98-107) 03/16/22 08:04 Carbon Dioxide 24 mmol/L (21-32) 03/16/22 08:04 Anion Gap 5 (3-11) 03/16/22 08:04 BUN 38 mg/dl (6-23) H 03/16/22 08:04 Creatinine 1.82 mg/dl (0.6-1.2) H 03/16/22 08:04 Est Cr Clr Drug Dosing 20.1 ml/min 03/16/22 08:04 Est GFR ( Amer) 29.5 ml/min 03/16/22 08:04 Est GFR (Non-Af Amer) 25.4 ml/min 03/16/22 08:04 BUN/Creatinine Ratio 20.9 (10-20) H 03/16/22 08:04 Glucose 81 mg/dl (70-99(Fasting)) 03/16/22 08:04 Calcium 8.4 mg/dl (8.5-10.1) L 03/16/22 08:04 SARS-CoV-2, RNA, NAAT NEGATIVE (NEGATIVE) 03/14/22 07:22 Impressions Knee X-Ray 03/14/22 11:55 XR knee LT 1 or 2V routine HISTORY: 81 years-old Female Surgical Post Op [knee total joint arthroplasty COMPARISON: None TECHNIQUE: 2 views of the left knee FINDINGS: Total joint arthroplasty with patellar resurfacing. Anterior skin sai are noted along the postoperative soft tissue swelling and deep tissue air an surgical catheter. IMPRESSION: Total joint arthroplasty with expected postoperative changes. ACT 112: Negative or not required by law. The above report was generated using voice recognition software. It may contain grammatical, syntax or spelling errors. Electronically signed by: Tomas Kapoor M.D. 03/14/2022 12:36 PM Chest X-Ray 03/15/22 20:39 XR chest 1V portable CLINICAL HISTORY: sob, tian, hfref, +fluids today COMPARISON STUDY: Chest radiograph performed earlier today. FINDINGS: There is no pneumothorax. There are small bilateral pleural effusions. Several right lung nodular densities are again noted. Interstitial pulmonary edema has slightly progressed. Cardiomediastinal silhouette is stable. No consolidation is identified. IMPRESSION: 1. Progression of mild interstitial pulmonary edema. Small bilateral pleural effusions. 2. Several nodular densities within the right lung. Nonemergent chest CT is recommended to exclude pulmonary nodules. ACT 112: Negative or not required by law. Electronically signed by: Jamal Cash M.D. 03/15/2022 9:[address] 03/16/22 08:16 CT SCAN OF THE CHEST WITHOUT IV CONTRAST CLINICAL HISTORY: Pulmonary nodule. COMPARISON STUDY: Chest x-ray dated 03/15/2022. TECHNIQUE: CT scan of the thorax was performed from the thoracic inlet to the upper abdomen. Images are reviewed in the axial, sagittal, and coronal planes. IV contrast was not administered for this examination as per the referring clinician. A dose lowering technique was utilized adhering to the principles of ALARA. The examination is degraded by motion artifact, as well as by streak artifact from the arms which could not be elevated above the chest. CT DOSE: 227.22 mGycm FINDINGS: Thyroid: Imaged portions of the thyroid gland are normal in size and attenuation. Thoracic aorta: There is atherosclerotic calcification of the thoracic aorta, which is normal in caliber and demonstrates standard 3-vessel arch anatomy. Heart: The heart is normal in size and without pericardial effusion. The coronary arteries are densely calcified. There is diminished attenuation of the cardiac blood pool as compared to the myocardium suggesting anemia. Lungs and pleural spaces: There is advanced emphysema. The trachea and central airways are clear. Small pleural effusions are noted with dependent atelectasis. There is a subsolid ill-defined airspace opacity in the right middle lobe on image #170. This measures up to 2.5 cm. A similar-appearing irregular airspace opacity in the right lower lobe on image #120 measures approximately 3 cm. An 8 mm subsolid nodule suggested in the right upper lobe on image #143. There are scattered calcified granulomas. A 3 mm nodule in the lingula is seen on image #150. Mediastinum: There is no mediastinal lymphadenopathy. Apryl: Not well assessed without IV contrast. Axillae: There is no axillary lymphadenopathy. Upper abdomen: Partially visualized upper abdominal viscera is within normal limits. Skeletal structures: The skeletal structures are osteopenic. No lytic or blastic bony lesions are seen. Degenerative change and scoliosis is noted in the spine. IMPRESSION: 1. Advanced emphysema. 2. There are irregular subsolid airspace opacities in the right middle and lower lobes as detailed above. These likely correspond to the opacities seen by chest x-ray. These are pathologically indeterminate, and may be on an infectious/inflammatory basis. Lesions within the adenocarcinoma spectrum could also have this appearance. Follow-up with pulmonology is recommended, as is a repeat chest CT in 2-3 months time for reassessment. 3. Additional smaller nodules/subsolid opacities as above. These should also be reassessed at follow-up. 4. Small pleural effusions with dependent atelectasis. 5. Additional findings as above. ACT 112: Positive. There are findings on this exam that require communication between the performing entity and the patient following Patient Test Result Information Act ([place] Act 112) guidelines. Electronically signed by: Jesse Driver M.D. 03/16/2022 10:49 AM
[2022-03-16] MEDS ORDERED: ALBUT/IPRATROP 3MG/0.5MG NEB 3 ML VIAL NEB PRN (13:22)
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
[2022-03-16] MEDS: AMOXICILLIN/CLAVULANATE 500 MG TAB PO SCH (16:56)
--- NOTE | 2022-03-16 18:42 | Ultrasound Report ---
US venous doppler LE BI CLINICAL HISTORY: postop ?DVT TECHNIQUE: Bilateral lower extremity real-time compression venous ultrasound with Color Doppler imagi ng. Utilizing real-time ultrasonic imaging multiple real time high-resolution ultrasonic images with compression and noncompression maneuvers of the deep venous system in addition to color doppler imagi ng were performed from the common femoral vein through the proximal calf veins. COMPARISON: None available at the time of this dictation. FINDINGS: Currently there is normal compressibility of the deep venous system from the common femoral vein thro ugh the proximal calf veins. No superficial venous thrombosis is identified. A left popliteal cyst is seen. Impression: No evidence of deep venous thrombus. ACT 112: Negative or not required by law. Electronically signed by: Richard Cho M.D. 03/16/2022 6:41 PM
[2022-03-16] MEDS: MELATONIN 3 MG TAB PO PRN (20:04)
[2022-03-16] MEDS: traZODone HCL 50 MG TAB PO SCH (20:05)
[2022-03-16] MEDS: SENNA 8.6 MG TAB PO SCH (20:05)
[2022-03-16] MEDS: ONDANSETRON INJ 2 MG/ML 2 ML VIAL IV PRN (20:07)
[2022-03-17] MEDS: ACETAMINOPHEN 500 MG TAB PO SCH ×3 (04:23→22:50)
[2022-03-17] MEDS: oxyCODONE HCL IR 5 MG TAB (IMMEDIATE RELEASE) PO PRN ×4 (04:24→20:26)
--- NOTE | 2022-03-17 06:59 | Orthopedic Progress Note ---
Date of Service March 17, 2022 Assessment & Plan (1) Primary osteoarthritis of left knee: Plan: POD 3 s/p Left TKA PT/OT protocols. WBAT LLE. DVT prophylaxis - ASA po bid, SCD's, GAIL's Pain management as written. medical management as outlined in their progress notes. DC planning - Pt hoping to go to [facility]. Awating auth Admission and Anticipated Discharge Date Admission Date: March 14, 2022 Subjective POD #3 left TKA Review of Systems Constitutional: no fever and no chills Respiratory: no cough and no dyspnea Cardiovascular: no chest pain, no dyspnea and no orthopnea Gastrointestinal: no abdominal pain, no nausea and no vomiting Physical Exam Physical Exam: Vital Signs Temp 36.7 C 03/16/22 20:15 Pulse 71 03/16/22 20:15 Resp 16 03/16/22 20:15 BP 175/75 H 03/16/22 20:15 Pulse Ox 93 03/16/22 20:15 O2 Del Method 03/16/22 21:00 O2 Flow Rate 3 03/16/22 21:00 Intake & Output 03/16/22 03/17/22 03/17/22 18:59 06:59 18:59 Intake Total 480 / 480 Output Total 1375 / 2075 700 / 2075 Balance -895 / -1595 -700 / -1595 Intake: Oral 480 / 480 Output: Urine 900 / 1600 700 / 1600 Urine Amount (Ca theter) 425 / 425 Trinidad/Indwelli ng 425 / 425 Drain Output 50 / 50 Hemovac 50 / 50 Left Leg: Dressings C/D/I. Calves soft, mild tenderness anterior tibial area and in the knee. Roz's negative. NV intact. Toes mobile. Results & Data ([facility]) Vital Signs (Past 12 Hours) Vital Signs Temp Pulse Resp BP Pulse Ox O2 Del Method O2 Flow Rate 03/16/22 21:00 Nasal Cannula 3 03/16/22 20:15 36.7 C 71 16 175/75 H 93 Nasal Cannula 3
[2022-03-17 07:51] LABS: Basophils # (auto) 0.02 K/uL (0-0.2); Basophils % (auto) 0.3 %; Eosinophils # (auto) 0.22 K/uL (0-0.50); Eosinophils % (auto) 3.4 %; Hematocrit (blood only) 28.5 % (34.1-44.9); Hemoglobin 9.5 g/dl (12.0-16.0); Immature Granulocytes # (auto) 0.01 K/uL (0.00-0.02); Immature Granulocytes % (auto) 0.2 %; Lymphocytes # (auto) 1.35 K/uL (1.2-3.4); Lymphocytes % (auto) 21.1 %; Mean Corpuscular Hemoglobin 31.9 pg (25.0-34.0); Mean Corpuscular Hgb Conc 33.3 g/dL (32.0-36.0); Mean Corpuscular Volume 95.6 fL (80.0-100.0); Mean Platelet Volume 11.2 fL (9.4-12.3); Monocytes # (auto) 0.56 K/uL (0.24-0.82); Monocytes % (auto) 8.8 %; Neutrophils # (auto) 4.23 K/uL (1.4-6.5); Neutrophils % (auto) 66.2 %; Platelet Count 125 K/uL (130-400); Platelet Estimate Normal (Normal); RDW Coefficient of Variation 13.6 % (11.5-14.5); RDW Standard Deviation 48.1 fL (36.4-46.3); Red Blood Count 2.98 M/uL (3.93-5.22); White Blood Count 6.39 K/ul (4.8-10.8)
[2022-03-17 08:24] LABS: BUN Creatinine Ratio 21.6 (10-20); Calcium 8.6 mg/dl (8.5-10.1); Est GFR (African American) 32.7 ml/min; Est GFR (Non-African American) 28.2 ml/min; Magnesium 1.8 mg/dl (1.7-2.4); Potassium 4.6 mmol/L (3.5-5.1)
[2022-03-17] MEDS: AMOXICILLIN/CLAVULANATE 500 MG TAB PO SCH ×2 (08:43→16:34)
[2022-03-17] MEDS: ASPIRIN 81 MG ECTAB PO SCH ×2 (08:44→20:26)
[2022-03-17] MEDS: ASCORBIC ACID 500 MG TAB PO SCH ×2 (08:44→20:26)
[2022-03-17] MEDS: DOCUSATE SODIUM 100 MG CAP PO SCH ×2 (08:44→20:26)
[2022-03-17] MEDS: CALCIUM 600MG + VIT D 400 IU TAB PO SCH ×2 (08:44→20:26)
[2022-03-17] MEDS: MULTIVITAMIN TAB PO SCH (08:45)
[2022-03-17] MEDS: METOPROLOL SUCC 25MG EXT REL TAB PO SCH (08:45)
[2022-03-17] MEDS: NICOTINE 21 MG/24 HR TDSY TD SCH (09:16)
--- NOTE | 2022-03-17 11:38 | Pulmonology Progress Note ---
Date of Service March 17, 2022 Assessment & Plan (1) Acute respiratory failure with hypoxia: (2) Emphysema of lung: (3) Pulmonary nodule: Plan Pression: 81-year-old female with extensive history of tobacco abuse and radiographic evidence of emphysema admitted for total knee arthroplasty with postoperative hypoxemic respiratory failure. She also has a pulmonary nodule but apparently this was noted on prior imaging which is not available to review. Recommendations: 1. Postoperative hypoxemic respiratory failure: Likely secondary to VQ mismatch as the patient states she has to lie flat in bed due to pain issues in her knee. The patient has an incentive spirometer but is confused about using it. When I asked her to use it she tries to exhale through the device. After extensive education we got her able to use the device appropriately. Her oxygen saturations bumped up to 98% on supplemental oxygen so I suspect there is a significant degree of atelectasis and VQ mismatching. She is not bronchospastic. No indication for steroids or additional inhalers. Out of bed to chair would likely be beneficial in improving the patient's oxygen requirement. With a negative duplex ultrasound, even if the patient were to have a PE, the likelihood of having a significant old and additional event is quite low and I think withholding additional evaluation given her chronic kidney disease is reasonable unless the patient should fail to improve with conservative management. Oxygen titrated to keep saturations at or above 88%. It appears her oxygen can be weaned at this point time. She may require oxygen to go to rehab. 2. COPD: Outpatient PFTs recommended. Smoking cessation recommended. The patient is not bronchospastic currently. No indication for inhalers, antibiotics, or steroids at this point time. 3. Pulmonary nodule: Await prior imaging. This can be followed as an outpatient. 4. Work-up and evaluation of the patient's other complaints is deferred to the primary and other consultative services. Thanks for the opportunity participating the care of this patient. We will continue to follow with you. Feel free to contact us with questions or concerns Admission and Anticipated Discharge Date Admission Date: March 14, 2022 Subjective Patient seen and examined. EMR reviewed. The patient complains of some nausea and continued pain in her knee. She is not having any chest pain or palpitations. No syncope or presyncope. No nausea or vomiting. She completed her duplex ultrasound which was negative. Review of Systems Review of Systems: All systems reviewed & are unremarkable except as noted in Subjective Physical Exam Constitutional: WD/WN, vitals as above Neck: trachea midline, no thyromegaly Respiratory: normal respiratory effort, lungs clear to auscultation Cardiovascular: RRR, no murmur, no edema Gastrointestinal (Abdomen): normal bowel sounds, soft, nontender, no hepatosplenomegaly Musculoskeletal: Extremities: extremities normal to inspection Skin: no rashes, warm and dry Lymphatic: no cervical lymphadenopathy Results & Data Results & Data ([facility]) Vital Signs (Past 12 Hours) Vital Signs Temp Pulse Resp BP Pulse Ox O2 Del Method O2 Flow Rate 03/17/22 07:33 36.8 C 71 14 143/64 H 93 Nasal Cannula 3 Laboratory Results 03/17/22 06:56 03/17/22 06:56 Diagnostic Findings Duplex ultrasound of the bilateral lower extremities showed no evidence of DVT PG Care Time/CCT Total # of Minutes Spent Total Time Spent with Patient: Total time spent is greater than 50% in coordination of care (as documented) at patient's floor/unit and/or counseling patient: Coding Level of Care Code 39256 Subseq Hosp Care Lvl 2 Diagnoses Acute respiratory failure with hypoxia J96.01 Emphysema of lung J43.9 Pulmonary nodule R91.1
[2022-03-17] MEDS: SENNA 8.6 MG TAB PO SCH (20:26)
[2022-03-17] MEDS: traZODone HCL 50 MG TAB PO SCH (20:26)
--- NOTE | 2022-03-17 22:08 | Hospitalist Progress Note ---
Date of Service March 17, 2022 Assessment & Plan (1) Primary osteoarthritis of left knee: Plan: s/p left TKR - POD #3 DVT proph -asa 81mg BID (2) S/P TKR (total knee replacement): Plan: LEFT POD #3 (3) Acute postoperative pulmonary insufficiency: Plan: no pneumonia on imaging low suspicion for PEs dopplers of legs neg DVT likely 2nd to atelectasis in setting of suspected, underlying COPD (4) CAD (coronary artery disease): Plan: no ischemic symptoms cont asa, BB she is statin intolerant (5) Status post coronary artery stent placement: Plan: noted cont BB and aspirin follows with cards in [place] (6) Tobacco abuse disorder: Plan: nicoderm patch counseled to quit smoking (7) Emphysema of lung: Plan: as noted on CT chest fingernail clubbing is suggestive of long-standing hypoxemia will need pulm f/u for PFTs, etc 2-step prior to discharge (8) Acute blood loss anemia: Plan: mild can follow recheck h/h in am (9) Chronic kidney disease, stage IV (severe): Plan: it appears baseline CrCl is 20s repeat BMP in am for stability (10) Dyslipidemia: Plan add miralax to colace & senna for constipation DVT proph - asa 81mg BID will cont to follow Admission and Anticipated Discharge Date Admission Date: March 14, 2022 Subjective patient only c/o L knee pain denies cough or dyspnea we had lengthy discussion about CT chest findings, concern for COPD, need for tobacco cessation, etc hasn't had BM yet but is passing flatus no abd pain or distension eating fine Review of Systems Review of Systems: cv - no orthopnea, no PND pulm - no wheezing GI - no vomiting Physical Exam Physical Exam: gen - thin, NAD mouth - MMM neck - no JVD heart - RRR, s1 s2, 2/6 systolic murmur RUSB lungs - CTA b/l skin - fingernail clubbing abd - soft, NT, ND, BS+, no HSM ext - left knee with dressing in place; minimal edema left ankle; pulses b/l feet 2+ psych - a/o x 3 Results & Data Results & Data ([facility]) Vital Signs (Past 12 Hours) Vital Signs Temp Pulse Resp BP Pulse Ox O2 Del Method O2 Flow Rate 10/01/22 20:15 92 Nasal Cannula 1 03/17/22 20:14 88 L Room Air 03/17/22 15:25 36.4 C L 80 14 161/65 H 93 Nasal Cannula 1 Laboratory Results Laboratory Results - last 24 hr 03/17/22 03/17/22 06:56 06:56 WBC 6.39 RBC 2.98 L Hgb 9.5 L Hct 28.5 L MCV 95.6 MCH 31.9 MCHC 33.3 RDW Std Deviation 48.1 H RDW Coeff of [place] 13.6 Plt Count 125 L MPV 11.2 Immature Gran % (Auto) 0.2 Neut % (Auto) 66.2 Lymph % (Auto) 21.1 [place] % (Auto) 8.8 Eos % (Auto) 3.4 Baso % (Auto) 0.3 Neut # (Auto) 4.23 Lymph # (Auto) 1.35 [place] # (Auto) 0.56 Eos # (Auto) 0.22 Baso # (Auto) 0.02 Immature Gran # (Auto) 0.01 Platelet Estimate Normal Sodium 135 L Potassium 4.6 Chloride 105 Carbon Dioxide 26 Anion Gap 4 BUN 36 H Creatinine 1.67 H Est Cr Clr Drug Dosing 22.0 Est GFR ( Amer) 32.7 Est GFR (Non-Af Amer) 28.2 BUN/Creatinine Ratio 21.6 H Glucose 94 Calcium 8.6 Magnesium 1.8 PG Care Time/CCT Total # of Minutes Spent Total Time Spent with Patient: Total time spent is greater than 50% in coordination of care (as documented) at patient's floor/unit and/or counseling patient: Coding Level of Care Code 33148 Subseq Obs Care Lvl 1 Diagnoses Primary osteoarthritis of left knee M17.12 S/P TKR (total knee replacement) Z96.659 Acute postoperative pulmonary insufficiency J95.2 CAD (coronary artery disease) I25.10 Status post coronary artery stent placement Z95.5 Tobacco abuse disorder Z72.0 Emphysema of lung J43.9 Acute blood loss anemia D62 Chronic kidney disease, stage IV (severe) N18.4 Dyslipidemia E78.5
[2022-03-18] MEDS: oxyCODONE HCL IR 5 MG TAB (IMMEDIATE RELEASE) PO PRN ×3 (00:34→19:25)
[2022-03-18] MEDS: ACETAMINOPHEN 500 MG TAB PO SCH ×3 (06:06→21:25)
--- NOTE | 2022-03-18 06:58 | Orthopedic Progress Note ---
Date of Service March 18, 2022 Assessment & Plan (1) Primary osteoarthritis of left knee: Plan: POD 4 s/p Left TKA PT/OT protocols. WBAT LLE. DVT prophylaxis - ASA po bid, SCD's, GAIL's Pain management as written. medical management as outlined in their progress notes. DC planning -discussed discharge plan with patient today, she is still hoping to get into rehab, [facility]. She does not feel that she would be able to go home, states she has a two-story house and has a lot of steps in her house. Will discuss with case management today to check [facility] Admission and Anticipated Discharge Date Admission Date: March 14, 2022 Subjective POD #4 left TKA, resting in bed, in no acute distress Physical Exam Physical Exam: Vital Signs Temp 36.8 C 03/18/22 00:59 Pulse 74 03/18/22 00:59 Resp 16 03/18/22 00:59 BP 137/72 03/18/22 00:59 Pulse Ox 92 03/18/22 00:59 O2 Del Method 03/18/22 00:59 O2 Flow Rate 1 03/18/22 00:59 Intake & Output 03/17/22 03/17/22 03/18/22 06:59 18:59 06:59 Intake Total 770 / 970 200 / 970 Output Total 700 / 2075 425 / 425 Balance -700 / -1595 345 / 545 200 / 545 Intake: Oral 770 / 970 200 / 970 Output: Urine 700 / 1600 425 / 425 Other: Other Intake Connie rce Sips # Unmeasured Voi ds 1 1 Left Leg: Dressings C/D/I. Calves soft, mild tenderness anterior tibial area and in the knee. Roz's negative. NV intact. Toes mobile. Results & Data ([facility] [place]) Vital Signs (Past 12 Hours) Vital Signs Temp Pulse Resp BP Pulse Ox O2 Del Method O2 Flow Rate 03/18/22 00:59 36.8 C 74 16 137/72 92 Nasal Cannula 1 03/17/22 20:00 Nasal Cannula 1 03/17/22 20:15 92 Nasal Cannula 1 03/17/22 20:14 88 L Room Air
[2022-03-18 07:31] LABS: Hematocrit (blood only) 30.2 % (34.1-44.9); Hemoglobin 9.9 g/dl (12.0-16.0)
[2022-03-18 07:59] LABS: Calcium 8.7 mg/dl (8.5-10.1); Creatinine Clr Calc Pharmacy 25.6 ml/min; Est GFR (African American) 39.4 ml/min; Potassium 4.6 mmol/L (3.5-5.1)
[2022-03-18] MEDS: METOPROLOL SUCC 25MG EXT REL TAB PO SCH (09:08)
[2022-03-18] MEDS: ASPIRIN 81 MG ECTAB PO SCH ×2 (09:08→21:25)
[2022-03-18] MEDS: MULTIVITAMIN TAB PO SCH (09:08)
[2022-03-18] MEDS: DOCUSATE SODIUM 100 MG CAP PO SCH ×2 (09:08→21:25)
[2022-03-18] MEDS: CALCIUM 600MG + VIT D 400 IU TAB PO SCH ×2 (09:08→21:25)
[2022-03-18] MEDS: ASCORBIC ACID 500 MG TAB PO SCH (09:08)
[2022-03-18] MEDS: AMOXICILLIN/CLAVULANATE 500 MG TAB PO SCH ×2 (09:09→16:24)
[2022-03-18] MEDS: NICOTINE 21 MG/24 HR TDSY TD SCH (09:09)
[2022-03-18] MEDS: POLYETHYLENE (MIRALAX) 17 GM PACK PO SCH (09:24)
--- NOTE | 2022-03-18 10:27 | Pulmonology Progress Note ---
Date of Service March 18, 2022 Assessment & Plan (1) Acute respiratory failure with hypoxia: (2) Emphysema of lung: (3) Pulmonary nodule: Plan Pression: 81-year-old female with extensive history of tobacco abuse and radiographic evidence of emphysema admitted for total knee arthroplasty with postoperative hypoxemic respiratory failure. She also has a pulmonary nodule but apparently this was noted on prior imaging which is not available to review. Recommendations: 1. Postoperative hypoxemic respiratory failure: Likely secondary to VQ mismatch/atelectasis/COPD. Continue supplemental oxygen titrated to keep saturations at or above 88%. Continue incentive spirometry. Again reemphasized to the patient the importance of getting out of bed and being up to the chair. 2. COPD: Outpatient PFTs recommended. Smoking cessation recommended. The patient is not bronchospastic currently. No indication for inhalers, antibiotics, or steroids at this point time. 3. Pulmonary nodule: Await prior imaging. This can be followed as an outpatient. 4. Work-up and evaluation of the patient's other complaints is deferred to the primary and other consultative services. Will at this point in time. No additional pulmonary recommendations. Pulmonary will sign off. Feel free to call us with additional questions or concerns Admission and Anticipated Discharge Date Admission Date: March 14, 2022 Subjective Patient seen and examined. EMR reviewed. The patient remains in bed. She states she has been out of bed with PT but remains fairly bedbound. Her oxygen level was weaning. She reports compliance with incentive spirometry. Review of Systems Review of Systems: All systems reviewed & are unremarkable except as noted in Subjective Physical Exam Constitutional: WD/WN, vitals as above Neck: trachea midline, no thyromegaly Respiratory: normal respiratory effort, lungs clear to auscultation Cardiovascular: RRR, no murmur, no edema Gastrointestinal (Abdomen): normal bowel sounds, soft, nontender, no hepatosplenomegaly Musculoskeletal: Extremities: extremities normal to inspection Skin: no rashes, warm and dry Lymphatic: no cervical lymphadenopathy Results & Data Results & Data ([facility]) Vital Signs (Past 12 Hours) Vital Signs Temp Pulse Resp BP Pulse Ox O2 Del Method O2 Flow Rate 03/18/22 07:44 36.8 C 72 14 135/66 91 Nasal Cannula 1 03/18/22 00:59 36.8 C 74 16 137/72 92 Nasal Cannula 1 Diagnostic Findings New imaging PG Care Time/CCT Total # of Minutes Spent Total Time Spent with Patient: Total time spent is greater than 50% in coordination of care (as documented) at patient's floor/unit and/or counseling patient: Coding Level of Care Code 17895 Subseq Hosp Care Lvl 2 Diagnoses Acute respiratory failure with hypoxia J96.01 Emphysema of lung J43.9 Pulmonary nodule R91.1
[2022-03-18] MEDS ORDERED: FAMOTIDINE 20 MG in SYRINGE 3 ML IV ONE (17:45)
[2022-03-18] MEDS: ONDANSETRON INJ 2 MG/ML 2 ML VIAL IV PRN (18:11)
[2022-03-18] MEDS: SENNA 8.6 MG TAB PO SCH (21:25)
[2022-03-18] MEDS: traZODone HCL 50 MG TAB PO SCH (21:25)
--- NOTE | 2022-03-18 21:42 | Hospitalist Progress Note ---
Date of Service March 18, 2022 Assessment & Plan (1) Abdominal pain: Plan: gastritis/GERD are possible thus IV pepcid 20mg x 1 now. passing little flatus and only 1 tiny stool a few days ago - dulcolax suppos x 1 now. then start PPI in am for possible gastritis/GERD. if pain persists then x-rays or CT a/p. bowel regimen of senna + miralax. (2) Primary osteoarthritis of left knee: Plan: s/p left TKR - POD #4 DVT proph -asa 81mg BID (3) S/P TKR (total knee replacement): Plan: LEFT POD #4 (4) Acute postoperative pulmonary insufficiency: Plan: no pneumonia on imaging low suspicion for PEs dopplers of legs neg DVT likely 2nd to atelectasis in setting of suspected, underlying COPD due to suspected COPD she may need ambulatory O2 (5) CAD (coronary artery disease): Plan: no ischemic symptoms cont asa, BB she is statin intolerant (6) Status post coronary artery stent placement: Plan: noted cont BB and aspirin follows with cards in [place] (7) Tobacco abuse disorder: Plan: nicoderm patch counseled to quit smoking (8) Emphysema of lung: Plan: as noted on CT chest fingernail clubbing is suggestive of long-standing hypoxemia will need pulm f/u for PFTs, etc 2-step prior to discharge (9) Acute blood loss anemia: Plan: mild H/H acceptable today (10) Chronic kidney disease, stage IV (severe): Plan: it appears baseline CrCl is 20s repeat BMP in am once again for stability (11) Dyslipidemia: (12) DVT prophylaxis: Plan: asa 81mg BID Plan augmentin - reason for use ? records suggest prophylactic antibiotics prior to procedures but echo 02/2022 with moderate MR, moderate , mod-severe AI - none of which require SBP proph will try to find out from patient indication for usage Admission and Anticipated Discharge Date Admission Date: March 14, 2022 Subjective I saw the patient around dinner time she reports drinking OJ and shortly after her stomach was bothering her she also had nausea had tiny BM a couple of days ago but none since she is passing little flatus fortunately has not vomited denies chest pain she ambulated with nursing staff during the day o2 sats were <88% on the walk (in room air) Review of Systems Review of Systems: gen - feels poorly cv - no orthopnea pulm - no dyspnea GI - abd pain - worst is LLQ Physical Exam Physical Exam: gen - thin, looks uncomfortable mouth - MMM neck - no JVD heart - RRR, s1 s2, 2/6 systolic murmur RUSB lungs - CTA b/l skin - fingernail clubbing abd - soft, tender high epigastric region and LLQ, no peritoneal signs, ND ext - left knee with dressing in place; minimal edema left ankle; pulses b/l feet 2+ psych - a/o x 3 Results & Data Results & Data ([facility]) Vital Signs (Past 12 Hours) Vital Signs Temp Pulse Resp BP Pulse Ox O2 Del Method O2 Flow Rate 03/18/22 16:06 96 Room Air 03/18/22 16:05 86 L Room Air 03/18/22 15:24 37.1 C 74 14 153/73 H 93 Nasal Cannula 1 Laboratory Results Laboratory Results - last 24 hr 03/18/22 03/18/22 07:15 07:15 Hgb 9.9 L Hct 30.2 L Sodium 133 L Potassium 4.6 Chloride 103 Carbon Dioxide 26 Anion Gap 4 BUN 30 H Creatinine 1.43 H Est Cr Clr Drug Dosing 25.6 Est GFR ( Amer) 39.4 Est GFR (Non-Af Amer) 34.0 BUN/Creatinine Ratio 21.0 H Glucose 106 H Calcium 8.7 PG Care Time/CCT Total # of Minutes Spent Total Time Spent with Patient: Total time spent is greater than 50% in coordination of care (as documented) at patient's floor/unit and/or counseling patient: Coding Level of Care Code 32838 Subseq Obs Care Lvl 2 Diagnoses Abdominal pain R10.9 Primary osteoarthritis of left knee M17.12 S/P TKR (total knee replacement) Z96.659 Acute postoperative pulmonary insufficiency J95.2 CAD (coronary artery disease) I25.10 Status post coronary artery stent placement Z95.5 Tobacco abuse disorder Z72.0 Emphysema of lung J43.9 Acute blood loss anemia D62 Chronic kidney disease, stage IV (severe) N18.4 Dyslipidemia E78.5 DVT prophylaxis Z29.9
[2022-03-19] MEDS: oxyCODONE HCL IR 5 MG TAB (IMMEDIATE RELEASE) PO PRN ×4 (03:58→22:25)
[2022-03-19] MEDS: ACETAMINOPHEN 500 MG TAB PO SCH ×3 (06:15→21:00)
--- NOTE | 2022-03-19 06:56 | Orthopedic Progress Note ---
Date of Service March 19, 2022 Assessment & Plan (1) Primary osteoarthritis of left knee: Plan: POD 5 s/p Left TKA PT/OT protocols. WBAT LLE. DVT prophylaxis - ASA po bid, SCD's, GAIL's Pain management as written. medical management as outlined in their progress notes. DC planning -discussed discharge plan with patient today, she is still hoping to get into rehab, authorization pending for [facility]. She does not feel that she would be able to go home, states she has a two-story house and has a lot of steps in her house. Patient stable for discharge once insurance Authorization is obtained. We will follow Admission and Anticipated Discharge Date Admission Date: March 14, 2022 Subjective Patient resting in bed comfortably. She is asleep but easily arousable. No current complaints. Pain is controlled. Review of Systems Review of Systems: All systems reviewed & are unremarkable except as noted in Subjective Physical Exam Physical Exam: Left knee dressing is clean, dry, intact. Bri in place. Toes are mobile with good dorsiflexion. No calf tenderness. Distally neurovascular status and sensation intact. Constitutional: well developed and well nourished; no acute distress Results & Data ([facility]) Vital Signs (Past 12 Hours) Vital Signs Temp Pulse Resp BP Pulse Ox O2 Del Method O2 Flow Rate 03/18/22 19:35 Room Air 03/18/22 23:21 92 Nasal Cannula 3 03/18/22 23:19 36.8 C 75 14 130/69 71 L Room Air
[2022-03-19 08:27] LABS: BUN Creatinine Ratio 22.1 (10-20); Calcium 8.7 mg/dl (8.5-10.1); Est GFR (African American) 43.8 ml/min; Est GFR (Non-African American) 37.8 ml/min; Potassium 4.6 mmol/L (3.5-5.1)
[2022-03-19] MEDS: POLYETHYLENE (MIRALAX) 17 GM PACK PO SCH (08:40)
[2022-03-19] MEDS: NICOTINE 21 MG/24 HR TDSY TD SCH (08:41)
[2022-03-19] MEDS: CALCIUM 600MG + VIT D 400 IU TAB PO SCH ×2 (08:43→20:44)
[2022-03-19] MEDS: MULTIVITAMIN TAB PO SCH (08:43)
[2022-03-19] MEDS: DOCUSATE SODIUM 100 MG CAP PO SCH ×2 (08:43→20:44)
[2022-03-19] MEDS: ASPIRIN 81 MG ECTAB PO SCH ×2 (08:43→20:45)
[2022-03-19] MEDS: PANTOprazole 40 MG TAB PO SCH (08:44)
[2022-03-19] MEDS: AMOXICILLIN/CLAVULANATE 500 MG TAB PO SCH (08:44)
[2022-03-19] MEDS: METOPROLOL SUCC 25MG EXT REL TAB PO SCH (08:44)
--- NOTE | 2022-03-19 18:25 | Hospitalist Progress Note ---
Date of Service March 19, 2022 Assessment & Plan (1) Abdominal pain: Plan: resolved suspect it was a combination of gastritis/GERD and constipation both resolved today now with frequent stools - stop the augmentin - no indication to maintain the augmentin at this time (2) Primary osteoarthritis of left knee: Plan: s/p left TKR - POD #5 DVT proph -asa 81mg BID (3) S/P TKR (total knee replacement): Plan: LEFT POD #5 (4) Acute postoperative pulmonary insufficiency: Plan: no pneumonia on imaging low suspicion for PEs -- dopplers of legs neg DVT low or low-normal O2s likely 2nd to atelectasis in setting of suspected, underlying COPD fingernail clubbing suggests long-standing hypoxemia due to suspected COPD she may need ambulatory O2; if she goes home with home therapy she should have formal 2-step if she goes to acute rehab they can perform the 2-step there will need f/u with Dr Sanders - [facility] [place] [facility] - as outpatient for formal PFTs, etc (5) CAD (coronary artery disease): Plan: no ischemic symptoms at this time cont asa, BB she is statin intolerant by report (6) Status post coronary artery stent placement: Plan: noted cont BB and aspirin follows with cardiology in [place] (7) Tobacco abuse disorder: Plan: nicoderm patch counseled to quit smoking (8) Emphysema of lung: Plan: as noted on CT chest fingernail clubbing is suggestive of long-standing hypoxemia will need pulm f/u for PFTs, etc 2-step prior to discharge if she goes home (9) Acute blood loss anemia: Plan: mild-moderate stable readings last 3-4 days (10) Chronic kidney disease, stage IV (severe): Plan: it appears baseline CrCl is 20s repeat BMP stable today (11) Dyslipidemia: (12) DVT prophylaxis: Plan: asa 81mg BID (13) Pulmonary nodule: Plan: multiple, per her chest CT as follows - "There is a subsolid ill-defined airspace opacity in the right middle lobe on image #170. This measures up to 2.5 cm. A similar-appearing irregular airspace opacity in the right lower lobe on image #120 measures approximately 3 cm. An 8 mm subsolid nodule suggested in the right upper lobe on image #143. There are scattered calcified granulomas. A 3 mm nodule in the lingula is seen on image #150." again will need f/u with Dr Sanders post-discharge for suspected COPD and the nodules Plan augmentin usage - has received for 3 days records suggest prophylactic antibiotics prior to procedures but echo 02/2022 with moderate MR, moderate , mod-severe AI - none of which require SBP proph I believe we can stop the augmentin today Admission and Anticipated Discharge Date Admission Date: March 14, 2022 Subjective patient reports frequent stooling today after taking colace, senna, and miralax she is currently on augmentin and has been on such for several days a review of her home med list shows amox as a prn med prior to dental visits when asked why she is on such she says "I have a bad tooth and I have been on antibiotics since the summer for it" she points to a mandibular central incisor as the culprit tooth denies any tooth pain at this time, however no abd pain no nausea today however, she has had poor appetite today, blaming the taste of the food as the cause of her poor appetite left knee pain is tolerable denies any dyspnea Review of Systems Review of Systems: gen - no fevers cv - no cp pulm - no dyspnea GI - no abd pain or vomiting Physical Exam Physical Exam: gen - thin, sitting in chair, looks better today mouth - MMM neck - no JVD heart - RRR, s1 s2, 2/6 systolic murmur RUSB lungs - CTA b/l abd - soft, NT, ND, BS+, no HSM ext - left knee with dressing in place; dressing is bloody; minimal edema left ankle; pulses b/l feet 2+ psych - seems a bit confused on dates/times Results & Data Results & Data ([facility]) Vital Signs (Past 12 Hours) Vital Signs Temp Pulse Resp BP Pulse Ox O2 Del Method O2 Flow Rate 03/19/22 15:42 36.5 C 73 16 151/66 H 94 Nasal Cannula 3 03/19/22 08:25 Nasal Cannula 3 03/19/22 07:39 37.0 C 82 16 121/65 91 Nasal Cannula 3 Laboratory Results Laboratory Results - last 24 hr 03/19/22 07:26 Sodium 134 L Potassium 4.6 Chloride 102 Carbon Dioxide 29 Anion Gap 3 BUN 29 H Creatinine 1.31 H Est Cr Clr Drug Dosing 28.0 Est GFR ( Amer) 43.8 Est GFR (Non-Af Amer) 37.8 BUN/Creatinine Ratio 22.1 H Glucose 108 H Calcium 8.7 PG Care Time/CCT Total # of Minutes Spent Total Time Spent with Patient: Total time spent is greater than 50% in coordination of care (as documented) at patient's floor/unit and/or counseling patient: Coding Level of Care Code 23317 Subseq Obs Care Lvl 2 Diagnoses Abdominal pain R10.9 Primary osteoarthritis of left knee M17.12 S/P TKR (total knee replacement) Z96.659 Acute postoperative pulmonary insufficiency J95.2 CAD (coronary artery disease) I25.10 Status post coronary artery stent placement Z95.5 Tobacco abuse disorder Z72.0 Emphysema of lung J43.9 Acute blood loss anemia D62 Chronic kidney disease, stage IV (severe) N18.4 Dyslipidemia E78.5 DVT prophylaxis Z29.9 Pulmonary nodule R91.1
[2022-03-19] MEDS: traZODone HCL 50 MG TAB PO SCH (20:43)
[2022-03-19] MEDS: SENNA 8.6 MG TAB PO SCH (20:45)
[2022-03-19] MEDS: MELATONIN 3 MG TAB PO PRN (21:00)
[2022-03-20] MEDS: oxyCODONE HCL IR 5 MG TAB (IMMEDIATE RELEASE) PO PRN ×2 (05:13→09:20)
--- NOTE | 2022-03-20 06:02 | Communication Note ---
Date of Service: March 20, 2022 Notified by patient's nurse that "pt c/o "bladder pain" rated 8/10, bladder scanned for 278ml. Pt states she does have some burning with urination. She has been up to void at least two times through the night..." Orders placed for UA + culture. Resident Activity Tracking Resident Involvement: Resident Care Provided Care Provided: Adult Hospital Medicine
[2022-03-20] MEDS: ACETAMINOPHEN 500 MG TAB PO SCH ×2 (06:08→15:05)
[2022-03-20 08:43] LABS: Appearance Urine Clear (Clear); Bilirubin Urine Negative (Negative); Blood Urine Negative (Negative); Color Urine Yellow; Glucose Urine UA Negative (Negative); Ketones Urine Negative (Negative); Leukocyte Esterase Urine Negative (Negative); Nitrite Urine Negative (Negative); Protein Urine Negative (Negative); Specific Gravity Urine 1.011 (1.000-1.030); Urobilinogen Urine Negative (Negative); pH Urine 6.5 (4.5-7.5)
[2022-03-20] MEDS: PANTOprazole 40 MG TAB PO SCH (08:48)
[2022-03-20] MEDS: ASPIRIN 81 MG ECTAB PO SCH (08:51)
[2022-03-20] MEDS: CALCIUM 600MG + VIT D 400 IU TAB PO SCH (08:51)
[2022-03-20] MEDS: MULTIVITAMIN TAB PO SCH (08:51)
[2022-03-20] MEDS: DOCUSATE SODIUM 100 MG CAP PO SCH (08:51)
[2022-03-20] MEDS: METOPROLOL SUCC 25MG EXT REL TAB PO SCH (08:51)
[2022-03-20] MEDS: POLYETHYLENE (MIRALAX) 17 GM PACK PO SCH (08:52)
[2022-03-20] MEDS: NICOTINE 21 MG/24 HR TDSY TD SCH (08:52)
--- NOTE | 2022-03-20 11:01 | Orthopedic Progress Note ---
Date of Service March 20, 2022 Assessment & Plan (1) Osteoarthritis of left knee: Plan: Postop day 6 status post left total knee arthroplasty. PT/OT protocols. Weightbearing as tolerated. DVT prophylaxis-aspirin p.o. twice daily, SCDs, GAIL aguirre. Pain management as written. Patient continues with 2 L of O2 per nasal cannula. With her possibility of having to go home with home health, she will likely need a two-step process to see where she is at with her O2 saturation levels. Will await input from hospitalist service. Unsure of reason of denial to [facility]. Approved for SNF of which patient is refusing. Patient ambulating approximately 80 feet yesterday with physical therapy and achieving 96 degrees of flexion. Follow PT progress. Patient may need to realize that she might need to go to a longterm facility if she is not safe at home. Patient resides by herself. Admission and Anticipated Discharge Date Admission Date: March 14, 2022 Subjective Postop day 6 Patient sitting in her chair at the bedside. Patient is disappointed that her peer to peer meeting for an attempt to get [facility] was denied. Patient states that she will likely have to go home at this point because she is refusing to go to a longterm facility. Also discussed staying with her son of which she does not want to do either. Pain is controlled at this time. No other complaints. Physical Exam Physical Exam: Bri dressing is clean, dry, and intact. Calves are soft nontender. Neurovascular intact. Toes are mobile. Results & Data ([facility]) Vital Signs (Past 12 Hours) Vital Signs Temp Pulse Resp BP Pulse Ox O2 Del Method O2 Flow Rate 03/20/22 07:36 36.8 C 87 17 160/61 H 98 Nasal Cannula 3 Laboratory Results 03/20/22 Range/Units 08:25 Urine Color Yellow Urine Appearance Clear (Clear) Urine pH 6.5 (4.5-7.5) Ur Specific [place] 1.011 (1.000-1.030) Urine Protein Negative (Negative) Urine Glucose (UA) Negative (Negative) Urine Ketones Negative (Negative) Urine Blood Negative (Negative) Urine Nitrite Negative (Negative) Urine Bilirubin Negative (Negative) Urine Urobilinogen Negative (Negative) Ur Leukocyte Esterase Negative (Negative)
--- NOTE | 2022-03-20 13:12 | Hospitalist Progress Note ---
Date of Service March 20, 2022 Assessment & Plan (1) Abdominal pain: Plan: resolved suspect it was a combination of gastritis/GERD and constipation both resolved today then with frequent stools - stopped the augmentin - no indication to maintain the augmentin at this time and now loose stools have resolved (2) Primary osteoarthritis of left knee: Plan: s/p left TKR - POD #6 doing well post-op, continue pain control prn PT/OT at home DVT proph -asa 81mg BID (3) S/P TKR (total knee replacement): Plan: as above (4) Acute postoperative pulmonary insufficiency: Plan: no pneumonia on imaging low suspicion for PEs -- dopplers of legs neg DVT low or low-normal O2s likely 2nd to atelectasis in setting of suspected, underlying COPD fingernail clubbing suggests long-standing hypoxemia due to suspected COPD she may need ambulatory O2; if she goes home with home therapy she should have formal [id number] on day of discharge will need f/u with Dr Sanders - [facility] - as outpatient for formal PFTs, etc encouraged ongoing ICS, smoking cessation (5) CAD (coronary artery disease): Plan: no ischemic symptoms at this time cont asa, BB she is statin intolerant by report (6) Status post coronary artery stent placement: Plan: noted cont BB and aspirin follows with cardiology in [place] (7) Tobacco abuse disorder: Plan: nicoderm patch counseled to quit smoking (8) Emphysema of lung: Plan: as noted on CT chest fingernail clubbing is suggestive of long-standing hypoxemia will need pulm f/u for PFTs, etc 2-step prior to discharge completed (9) Acute blood loss anemia: Plan: mild-moderate stable readings last 3-4 days prior to discharge (10) Chronic kidney disease, stage IV (severe): Plan: it appears baseline CrCl is 20s (11) Dyslipidemia: (12) Pulmonary nodule: Plan: multiple, per her chest CT as follows - "There is a subsolid ill-defined airspace opacity in the right middle lobe on image #170. This measures up to 2.5 cm. A similar-appearing irregular airspace opacity in the right lower lobe on image #120 measures approximately 3 cm. An 8 mm subsolid nodule suggested in the right upper lobe on image #143. There are scattered calcified granulomas. A 3 mm nodule in the lingula is seen on image #150." again will need f/u with Dr Sanders post-discharge for suspected COPD and the nodules (13) DVT prophylaxis: Plan: asa 81mg BID Plan Dispo-stable for dc to home with home health Discussed care with Yash Perdomo PA Admission and Anticipated Discharge Date Admission Date: March 14, 2022 Subjective Pt upset to hear her rehab was denied. She worries about not being able ot go upstairs to her bedroom and bathroom-I will help arrange for bedside commode and she will sleep on couch at home. I informed her that a peer to peer was completed on her behalf with her insurance company physician at [facility], however still denied. Denies CP, SOB, abd pains except does have some soreness in lower abdomen when she tries to do a sit up in bed. UA normal checked last night Review of Systems Review of Systems: All systems reviewed & are unremarkable except as noted in HPI & below Physical Exam Physical Exam: gen - thin, NAD, AAOx3 mouth - MMM neck - no JVD heart - RRR, s1 s2, 2/6 systolic murmur RUSB lungs - CTA b/l abd - soft, NT, ND, BS+, no HSM ext - left knee with dressing in place; dressing is bloody; minimal edema left ankle; pulses b/l feet 2+ , ecchymosis left leg Results & Data Results & Data ([facility]) Vital Signs (Past 12 Hours) Vital Signs Temp Pulse Resp BP Pulse Ox O2 Del Method O2 Flow Rate 03/20/22 07:30 Nasal Cannula 3 03/20/22 07:36 36.8 C 87 17 160/61 H 98 Nasal Cannula 3 Laboratory Results 03/20/22 Range/Units 08:25 Urine Color Yellow Urine Appearance Clear (Clear) Urine pH 6.5 (4.5-7.5) Ur Specific [place] 1.011 (1.000-1.030) Urine Protein Negative (Negative) Urine Glucose (UA) Negative (Negative) Urine Ketones Negative (Negative) Urine Blood Negative (Negative) Urine Nitrite Negative (Negative) Urine Bilirubin Negative (Negative) Urine Urobilinogen Negative (Negative) Ur Leukocyte Esterase Negative (Negative) PG Care Time/CCT Total # of Minutes Spent Total Time Spent with Patient: Total time spent is greater than 50% in coordination of care (as documented) at patient's floor/unit and/or counseling patient: Coding Level of Care Code 61336 Subseq Hosp Care Lvl 2 Diagnoses Abdominal pain R10.9 Primary osteoarthritis of left knee M17.12 S/P TKR (total knee replacement) Z96.659 Acute postoperative pulmonary insufficiency J95.2 CAD (coronary artery disease) I25.10 Status post coronary artery stent placement Z95.5 Tobacco abuse disorder Z72.0 Emphysema of lung J43.9 Acute blood loss anemia D62 Chronic kidney disease, stage IV (severe) N18.4 Dyslipidemia E78.5 Pulmonary nodule R91.1 DVT prophylaxis Z29.9
--- NOTE | 2022-03-21 15:13 | Discharge Summary ---
Date of Service March 21, 2022 Admission HPI Per Admitting Provider 81-year-old female with past medical history significant for coronary disease presents with ongoing left knee pain. Her pain is interfering with her daily activities. She has failed conservative measures. She would like to proceed with knee replacement. Patient denies headaches, sweats, fevers, chills, double vision, blurred vision, cough, sore throat, dysphagia, chest pain, sob, wheezing, n/v/d/c, numbness, tingling, fatigue, urinary symptoms, mood disorders. ROS positive for left knee pain and stiffness. Admission Exam Per Admitting Provider Physical Exam Constitutional: well developed and well nourished; no acute distress Eyes: PERRL, conjunctivae normal, anicteric sclerae ENMT: external ear and nose normal, oropharynx normal Neck: trachea midline, no thyromegaly Respiratory: normal respiratory effort, lungs clear to auscultation Cardiovascular: RRR, no murmur, no edema Musculoskeletal: Left knee: Valgus alignment. Moderate effusion. Tenderness medial joint line and lateral joint line. Positive Nils's. Stable to valgus and varus stress. ROM 5-130 degrees. Skin: no rashes, warm and dry Neurologic: patellar DTR's 2+ bilat, sensation intact Psychiatric: A+Ox3, euthymic affect Principal Diagnosis Left Knee Osteoarthritis Discharge Data Allergies Allergy/AdvReac Type Severity Reaction Status Date / Time atorvastatin AdvReac Unknown Muscle Verified 03/14/22 07:33 aches Consultations 03/12/22 10:02 Consult Hospitalist Routine 03/16/22 15:43 Consult Pulmonology Routine Procedures Performed Operation Date: 03/14/22 09:20 Actual Procedures p Left Total Knee Arthroplasty(Left) - Leoncio Carson MD Ordered Studies 03/14/22 05:00 US - OR guided needle placemen Routine 03/16/22 08:16 CT chest diagnostic wo con Routine 03/16/22 16:24 US venous doppler LE Stat Hospital Course (1) Osteoarthritis of left knee: Patient was admitted on the above-noted date and had the above-noted surgery performed which she tolerated well. On her first postoperative day, she was sleeping upon arrival but was easily awoken. She had no complaints other than she did not sleep well. Pain was controlled. Dressings were clean, dry, and intact. Calves soft and nontender. Neurovascular intact. Toes mobile. Hemovac drainage was 250 mL from the previous shift. Hemoglobin was 9.3. She was started on PT and OT protocols and continued on DVT prophylaxis and pain management. [facility] hospitalist group was consulted for medical management and continue to see the patient during her stay. Patient was noted to have a right lower tooth recurrent infection and was started on Augmentin twice daily. 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 Patient was later seen in the afternoon by medicine service for mild respiratory distress. [place] to be multifactorial. She was treated accordingly and continually watched. She was continued on her O2 per nasal cannula. CT of the chest was also ordered showing advanced emphysema and irregular some solid airspace opacities in the right middle and lower lobes along with small pleural effusions and dependent atelectasis. Pulmonology was consulted and continue to follow patient for the next several days. Recommendations were made and pulmonology signed off by 03/18/22. Patient continued to progress with her physical therapy protocol. Attempts were made to [facility] however insurance company was denying. A peer to peer was performed by Dr. Carson's office. The peer to peer meeting resulted in a denial for her acute rehab. Skilled facility was approved or home health services. Patient was refusing shelter facility and chose home health services. She continued to remain on O2 per nasal cannula and a two-step test was performed. Hospitalist service arranged for home O2 and plans to follow-up with Dr. Sanders in the future as an outpatient. By 03/20/2022, she was remaining stable and was felt she be discharged home for further review please see chart; lab and x-ray data as per chart. Total Time Total Time Spent Total Time Spent (In Minutes): 10 Discharge Plan Discharge Items Patient Disposition: Home - Home Health Services Reason For Visit: Osteoarthritis Left Knee Discharge Diagnosis: Osteoarthritis Left Knee Activity: Per Instructions section Weightbearing: Left weightbearing Weightbearing Comment: as tolerated with walker Non-emergency contact: Surgeon Call non-emergency contact if: you have any medication questions, your pain is not controlled, your temperature is above 101.5, your wound has increased redness and your wound has increased drainage Follow-up/Referrals: Leoncio Carson MD [Surgeon] - (Follow up with Dr Carson 2 weeks from the day of your surgery for your first post operative visit.) Vicente Carpio, [Primary Care Provider] - 03/27/22 11:00 am Diet: Regular Addtl Attending Provider Instructions: ACTIVITY RECOMMENDATIONS: SELF CARE INSTRUCTIONS AFTER TOTAL KNEE REPLACEMENT A. You may need to continue a physical therapy program after discharge from the hospital. There are several options available to you. Your doctor will assist you in selecting the best one for you. 1. An out-patient facility 2 to 3 times a week for therapy or home therapy. 2. Continue working on all exercises taught to you in the hospital. Your goals should be to increase bending of your knee to 90 degrees and beyond and to fully straighten your knee. B. You may progress at your own pace from walking with a walker or crutches to a cane; then to no assistive devices. C. Make walking a part of your daily routine. Be up as much as comfortable with rest periods throughout the day. Rest with leg elevation is very important. Use the ice wrap frequently for the first 3-4 weeks. D. There are no restrictions on activities. You may ride in a car, shop, participate in community health coordinator and all social activities. E. Wear the long elastic stockings (GAIL hose) 20 hours a day for 2 weeks after surgery. They can be removed several times a day for laundering and for a bath. F. You may shower, no tub baths until cleared by your doctor. SPECIAL CARE INSTRUCTIONS: VERY IMPORTANT TO READ AND REVIEW A. There are a few signs you need to watch for after you are home. Call [facility] if you notice any of the followin. Increased severe knee pain. Some pain is expected especially when you exercise. 2. Increased swelling in your leg or knee; pain or swelling of the calf muscle in either lower leg. 3. Any fluid drainage from the incision. 4. Shortness of breath or chest pain. B. Please call [facility] at if you have any concerns or questions about your operation or recovery. The doctor or his nurse will return your call promptly. C. You must take antibiotics before dental work, bladder, bowel or other surgery. Your doctor will provide you with a permanent care to carry describing this precaution. IMPORTANT: * REMEMBER TO TAKE ASPIRIN, 81 MG, TWICE DAILY FOR 4 WEEKS UNLESS OTHERWISE DIRECTED. THIS IS YOUR BLOOD THINNER. * HIGH RISK PATIENTS MAY BE PRESCRIBED A STRONGER BLOOD THINNER. THIS WILL BE PROVIDED AT DISCHARGE. * CALL IF INCREASED PAIN, REDNESS, DRAINAGE OR FEVER GREATER THAT 101. * WEAR GAIL HOSE 20 HOURS PER DAY FOR 2 WEEKS. * Bri Dressing - This is a large suction dressing covering your incision. This will help pull any excess drainage from the wound and allow your incision to heal properly. You may shower with this if you can keep the unit outside of the shower. If any bleeding or leakage is noted please call your doctor's office. This will remain on your incision for 7 days and then should be removed. This can be done yourself or by the home nursing staff if applicable. The entire unit is disposable once removed. Once removed, keep incision clean and dry. If redness or drainage is noted, please call your surgeon. . FOLLOW UP VISIT: If appointment is not already scheduled: Please call [facility] to make a follow-up appointment for 2 weeks after your surgery at . Stand-Alone Forms: My [facility], Smoking Cessation Medications and DC Order Prescriptions: New aspirin 81 mg Tablet,Delayed Release (Dr/Ec) 81 mg PO BID 30 Days Qty: 60 0RF acetaminophen [Tylenol Extra Strength] 500 mg Tablet 1,000 mg PO Q8 14 Days Qty: 84 0RF cefadroxil 500 mg capsule 500 mg PO BID Qty: 28 1RF pantoprazole 40 mg Tablet,Delayed Release (Dr/Ec) 40 mg PO QAM 30 Days Qty: 30 0RF oxycodone 5 mg tablet 5 mg PO Q4H MDD 6 PRN (Reason: pain) Qty: 30 0RF Continued trazodone 50 mg Tablet 150 mg PO HS amoxicillin 500 mg Tablet 2,000 mg PO UD PRN (Reason: dental appts) metoprolol succinate 25 mg Tablet Extended Release 24 Hr 25 mg PO QAM flaxseed oil 1,000 mg Capsule 1,000 mg PO HS Rx Instructions: administer with meals ascorbic acid (vitamin C) [Vitamin C] 500 mg Tablet 500 mg PO BID Hair,Skin and Nails Tablet 1 tab PO QAM Calcium Magnesium + D [id number] mg-mg-unit Tablet 1 tab PO BID Beet Root 1 dose PO BID Viviseal 1 tab PO BID Discontinued meloxicam 7.5 mg Tablet 7.5 mg PO QAM turmeric root extract 500 mg Capsule 500 mg PO QAM aspirin 81 mg Capsule 81 mg PO QAM Discharge Orders: Discharge Order (Routine); Ordered 03/20/22 Ordered By: Seth Sifuentes/Other Patient Handouts: RICE Admission Data Admit Date/Time: 03/14/22 11:55 Attending Provider: Leoncio Carson Admit Provider: Leoncio Carson Primary Care Provider: Vicente Carpio Other Providers: [facility],Home [facility] ; [facility] ; Gordo Sanders ; Shaista Barth Other Interventions: Discharge Summary Assessment (RN) Last Done: 03/20/22 16:26
--- NOTE | 2022-04-02 12:53 | Coding Query ---
A supporting diagnosis is required for the test/procedure performed on this patient in order for us to be reimbursed by the patient's insurance. Please provide a supporting diagnosis for the following test/procedure listed below next to the test name along with your signature. *If there is no additional diagnosis for this patient that would support the following test/procedure please document that below next to the test/procedure. Test(s)/Procedure(s) that require a supporting diagnosis: US venous doppler LE DIAGNOSIS:__Acute Hypoxic Respiratory failure Patient with post-op persistent acute hypoxic respiratory failure. CT-PE protocol was limited by concurrent TASHIA limiting contrast use. Bilateral lower extremity dopplers to assess for DVT/risk of PE. Provider Signature: ____Nima Gaffney Date: 04/13/22 Thank you Lynnette Feliciano Health Information Management Once completed, please kindly fax back to [phone] For questions please call [phone] [email or web address]
== END 2022-03-20 18:48 | disposition home health service (06) ==
LOC: PACUINP 07:05 → ASU 07:05 → 3W 13:12